=== PATIENT | male | born 1995 | race Caucasian/White ===

== ENCOUNTER 2019-09-23 20:58 | Inpatient (IN) | payer SELFPAY ==
--- NOTE | 2019-09-23 21:01 | W.ED.PSYCH ---
Documented by User: DAXA Richey 09/23/19 22:13 HPI - Psych General: Chief Complaint: Psychiatric Symptoms Stated Complaint: SI Time Seen by Provider: 09/23/19 21:01 Source: patient Mode of arrival: ambulatory Limitations: no limitations History of Present Illness: HPI Narrative: Patient is a 24-year-old male who presents to ED today along with his mother and girlfriend for complaints of a psychological breakdown . Patient tells me approximately 2 hours ago he had an episode of cognitive disassociation and apparently was self-loathing, self harming, and wanting to . Patient tells me that his life has gone to hell . He reports a previous suicide attempt 2 years ago by overdosing on sleeping pills. He is not homicidal or experiencing hallucinations. He denies drug or alcohol use. MD complaint: feels depressed and altered mental status Onset (ago): hour(s) History of same: Yes Relieving factors: none Associated symptoms: Reports depression and suicidal ideation; Deny auditory hallucinations, visual hallucinations or homicidal ideation Review of Systems Const: Denies: fever or chills Card: Denies: chest pain, palpitations, lightheadedness or syncope Resp: Denies: shortness of breath GI: Denies: abdominal pain, nausea, vomiting or diarrhea Skin/Breast: Denies: rash Neuro: Denies: headache Psych: Reports: depression, mood swings, irritability and suicidal ideation; Denies: anxiety, visual hallucinations, auditory hallucinations or homicidal ideation PFS ED PFSH: Statuses (acute, chronic, etc) shown below reflect problem list status as previously entered and may not be historically accurate Social History Smoking and tobacco status: current every day smoker Physical Exam Const: COMMON NORMALS: no apparent distress, average body habitus, oriented x3, no limitations, alert and well nourished GENERAL APPEARANCE: cooperative and well kempt Resp: COMMON NORMALS: normal respiratory effort and clear to auscultation bilaterally AUSCULTATION: clear to auscultation bilaterally Cardio: COMMON NORMALS: regular rate and regular rhythm RATE: regular rate RHYTHM: regular rhythm Neuro: COMMON NORMALS: oriented x3 SENSORIUM/ORIENTATION: Yes alert Psych: COMMON NORMALS: mental status grossly normal, thought process normal, cooperative, affect normal, speech normal and activity/motor behavior normal APPEARANCE: Yes well kempt ACTIVITY/MOTOR BEHAVIOR: Yes appropriate eye contact and No psychomotor agitation SPEECH: Yes normal speech THOUGHT PROCESS: normal thought process MEMORY/COGNITION: Yes cognition grossly intact INSIGHT: insight good JUDGEMENT: judgment good MDM - Psych MDM Narrative: Medical decision making narrative: Spoke to Dr. Turner who will place admit orders. Lab Data: Labs: Lab Results 09/23/19 09/23/19 09/23/19 Range/Units 21:20 21:20 21:58 WBC 8.9 (4.0-10.0) 10^3/ uL RBC 4.73 (4.1-5.3) 10^6/u L Hgb 13.5 (11.7-16.6) g/dL Hct 41.7 L (42.0-52.0) % MCV 88.2 (80-94) fL MCH 28.5 (28.0-34.0) pg MCHC 32.4 (30.0-36.0) g/dL RDW 11.9 L (12.1-15.1) % Plt Count 197 (130-400) 10^3/c mm MPV 12.0 H (7.4-10.4) fL Neut % (Auto) 61.0 % Lymph % (Auto) 30.3 % [place] % (Auto) 6.6 % Eos % (Auto) 1.7 % Baso % (Auto) 0.2 % Neut # (Auto) 5.4 (1.8-7.7) 10^3/u L Lymph # (Auto) 2.7 (0.8-4.8) 10^3/u L [place] # (Auto) 0.6 (0.2-0.9) 10^3/u L Eos # (Auto) 0.2 (0.0-0.8) 10^3/u L Baso # (Auto) 0.0 (0.0-0.1) 10^3/u L Nucleated RBC % (a uto) 0 % Nucleated RBCs # 0.0 /100WBC Sodium 139 (136-145) mmol/L Potassium 3.8 (3.5-5.1) mmol/L Chloride 102 (98-107) mmol/L Carbon Dioxide 27 (22-29) mmol/L Anion Gap 13.8 (5-19) BUN 11 (6-20) mg/dL Creatinine 0.8 (0.7-1.2) mg/dL GFR Calculation 117.8 (90-130) mL/min Glucose 98 (65-115) mg/dL Calcium 10.2 (8.5-10.5) mg/dL Total Bilirubin 0.3 (0.15-1.2) mg/dL AST 19 (0-40) U/L ALT 12 (0-41) U/L Alkaline Phosphata se 35 L (40-130) IU/L Total Protein 7.8 (6.6-8.7) g/dL Albumin 4.4 (3.5-5.2) g/dL Globulin 3.4 (1.3-4.6) g/dL TSH 1.12 (0.27-4.20) uIU/ mL Salicylates 1.5 L (3-10) mg/dL Urine Opiates Scre en Negative (Negative) ng/mL Acetaminophen < 5.0 L (10-30) ug/mL Ur Barbiturates Sc reen Negative (Negative) ng/mL Ur Phencyclidine S crn Negative (Negative) ng/mL Ur Amphetamines Sc reen Negative (Negative) ng/mL U Benzodiazepines Scrn Negative (Negative) ng/mL Urine Cocaine Scre en Negative (Negative) ng/mL U Marijuana (THC) Screen Negative (Negative) ng/mL Ethyl Alcohol < 10 (0-10) mg/dL Discharge Plan Discharge Patient Disposition: Xfer Psychiatric Hosp Clinical Impression: Suicidal ideation Condition: Stable Sign Out Sign Out Data: Patient Sign Out occurred on 09/23/19 at 23:01. Patient's care was discussed, and care was transferred from to Asha Turner. Coding Level of Care Code ED Culvert Installer for Chg Fwd Exam Problem Focused Documented by User: Asha uTrner 09/23/19 23:18 HPI - Psych General: Chief Complaint: Psychiatric Symptoms Stated Complaint: SI Time Seen by Provider: 09/23/19 21:01 [facility] ED PFSH: Statuses (acute, chronic, etc) shown below reflect problem list status as previously entered and may not be historically accurate Social History Smoking and tobacco status: current every day smoker MDM - Psych Lab Data: Labs: Lab Results 09/23/19 09/23/19 09/23/19 Range/Units 21:20 21:20 21:58 WBC 8.9 (4.0-10.0) 10^3/ uL RBC 4.73 (4.1-5.3) 10^6/u L Hgb 13.5 (11.7-16.6) g/dL Hct 41.7 L (42.0-52.0) % MCV 88.2 (80-94) fL MCH 28.5 (28.0-34.0) pg MCHC 32.4 (30.0-36.0) g/dL RDW 11.9 L (12.1-15.1) % Plt Count 197 (130-400) 10^3/c mm MPV 12.0 H (7.4-10.4) fL Neut % (Auto) 61.0 % Lymph % (Auto) 30.3 % [place] % (Auto) 6.6 % Eos % (Auto) 1.7 % Baso % (Auto) 0.2 % Neut # (Auto) 5.4 (1.8-7.7) 10^3/u L Lymph # (Auto) 2.7 (0.8-4.8) 10^3/u L [place] # (Auto) 0.6 (0.2-0.9) 10^3/u L Eos # (Auto) 0.2 (0.0-0.8) 10^3/u L Baso # (Auto) 0.0 (0.0-0.1) 10^3/u L Nucleated RBC % (a uto) 0 % Nucleated RBCs # 0.0 /100WBC Sodium 139 (136-145) mmol/L Potassium 3.8 (3.5-5.1) mmol/L Chloride 102 (98-107) mmol/L Carbon Dioxide 27 (22-29) mmol/L Anion Gap 13.8 (5-19) BUN 11 (6-20) mg/dL Creatinine 0.8 (0.7-1.2) mg/dL GFR Calculation 117.8 (90-130) mL/min Glucose 98 (65-115) mg/dL Calcium 10.2 (8.5-10.5) mg/dL Total Bilirubin 0.3 (0.15-1.2) mg/dL AST 19 (0-40) U/L ALT 12 (0-41) U/L Alkaline Phosphata se 35 L (40-130) IU/L Total Protein 7.8 (6.6-8.7) g/dL Albumin 4.4 (3.5-5.2) g/dL Globulin 3.4 (1.3-4.6) g/dL TSH 1.12 (0.27-4.20) uIU/ mL Salicylates 1.5 L (3-10) mg/dL Urine Opiates Scre en Negative (Negative) ng/mL Acetaminophen < 5.0 L (10-30) ug/mL Ur Barbiturates Sc reen Negative (Negative) ng/mL Ur Phencyclidine S crn Negative (Negative) ng/mL Ur Amphetamines Sc reen Negative (Negative) ng/mL U Benzodiazepines Scrn Negative (Negative) ng/mL Urine Cocaine Scre en Negative (Negative) ng/mL U Marijuana (THC) Screen Negative (Negative) ng/mL Ethyl Alcohol < 10 (0-10) mg/dL Discharge Plan Discharge Patient Disposition: Xfer Psychiatric Hosp Clinical Impression: Suicidal ideation Condition: Stable Sign Out Sign Out Data: Patient Sign Out occurred on 09/23/19 at 23:01. Patient's care was discussed, and care was transferred from to Asha Loera [facility]. Coding Level of Care Code ED Culvert Installer for Rosemary Torres Exam Problem Focused
[2019-09-23 21:03] VITALS: BP 126/77; PULSE 70; RESP 16; TEMP 36.9; O2SAT 98; BMI 20.9
[2019-09-23 21:32] LABS: Basophils % 0.2 %; Eosinophils # 0.2 10^3/uL (0.0-0.8); Eosinophils % 1.7 %; Hematocrit 41.7 % (42.0-52.0); Hemoglobin 13.5 g/dL (11.7-16.6); Lymphocytes # 2.7 10^3/uL (0.8-4.8); Lymphocytes % 30.3 %; Mean Corpuscular HGB Conc 32.4 g/dL (30.0-36.0); Mean Corpuscular Hemoglobin 28.5 pg (28.0-34.0); Mean Corpuscular Volume 88.2 fL (80-94); Monocytes # 0.6 10^3/uL (0.2-0.9); Monocytes % 6.6 %; Neutrophils # 5.4 10^3/uL (1.8-7.7); Nucleated Red Blood Cells % 0 %; Platelet Count 197 10^3/cmm (130-400); Red Blood Count 4.73 10^6/uL (4.1-5.3); Red Cell Distribution Width 11.9 % (12.1-15.1); White Blood Count 8.9 10^3/uL (4.0-10.0)
[2019-09-23 22:00] LABS: Acetaminophen < 5.0 ug/mL (10-30); Alanine Aminotransferase 12 U/L (0-41); Albumin Level 4.4 g/dL (3.5-5.2); Alcohol Level < 10 mg/dL (0-10); Alkaline Phosphatase 35 IU/L (40-130); Anion Gap 13.8 (5-19); Aspartate Amino Transferase 19 U/L (0-40); Blood Urea Nitrogen 11 mg/dL (6-20); Calcium 10.2 mg/dL (8.5-10.5); Carbon Dioxide 27 mmol/L (22-29); Chloride 102 mmol/L (98-107); Globulin 3.4 g/dL (1.3-4.6); Glomerular Filtration Rate 117.8 mL/min (90-130); Glucose 98 mg/dL (65-115); Potassium 3.8 mmol/L (3.5-5.1); Salicylate 1.5 mg/dL (3-10); Sodium 139 mmol/L (136-145); Thyroid Stimulating Hormone 1.12 uIU/mL (0.27-4.20); Total Bilirubin 0.3 mg/dL (0.15-1.2); Total Protein 7.8 g/dL (6.6-8.7)
[2019-09-23 22:42] LABS: Amphetamines Screen Urine Negative (Negative); Barbiturates Screen Urine Negative (Negative); Benzodiazepines Screen Urine Negative (Negative); Cocaine Screen Urine Negative (Negative); Opiate Screen Urine Negative (Negative); PCP Screen Urine Negative (Negative); THC Screen Urine Negative (Negative)
[2019-09-23 22:43] VITALS: BP 122/80; PULSE 76; RESP 12; O2SAT 98
[2019-09-23 23:14] VITALS: BP 132/84; PULSE 77; RESP 18; O2SAT 98
[2019-09-23 23:46] VITALS: BP 132/89; PULSE 69; RESP 18; TEMP 36.4; O2SAT 98
[2019-09-24 05:15] VITALS: BP 101/53; PULSE 76; RESP 16; TEMP 36.9; O2SAT 95
[2019-09-24] MEDS: nicotine 21 mg Patch 1 PATCH TRANSDERMA (08:36)
[2019-09-24 08:38] VITALS: PULSE 108; RESP 18; O2SAT 97
--- NOTE | 2019-09-24 10:52 | P.HP_ITS ---
Providers/Chief Complaint Admitting Physician: Hardeep Bradshaw MD Primary Care Provider: JOVANA Francis Chief Complaint: asking to go to npu HPI NPU History of Present Illness Zev Live is a 24 year old male who presents to the emergency room b ecause he was having some rough times. He reports that 4 week he had really been sleeping and things were not going well. He reports that he was last here in January 2018. He has been living in [place] and moving back and trying to really make the best of his life with his girlfriend. He reports that they were having some challenges in that led to what happened but, part of the issue is that he reports having somewhat explosive behaviors without really having triggers sometimes and was triggers other times. And he feels great guilt and remorse about how he responds to situations above and beyond what those situations with arousals and other people. He endorses having one suicide attempt in his life. He reports that he wants to manage this [id number] anger and irritability and is not currently on any medications and is open to a trial of something. We discussed the risks, benefits and alternatives of Lamictal for his mood dysregulation and BuSpar for his anxiety and he understood and agreed to proceed as is documented in his note. Psychiatric history: He had a few hospitalizations but limited medication trials. Substance abuse history: He endorses that he smokes about a pack of cigarettes a day, does not drink alcohol with any regularity, as marijuana occasionally but not daily, denies cocaine and methamphetamine or any other illicit drug use. He never has been to rehabilitation or had a DUI. Family history: He endorses mental health issues on both sides of his family, he has addiction issues on his dad's side of family, and he denies any suicide attempts or completions in his family. 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 A walk and talk to [facility] [place] milestones on time. He reports he did have speech therapy and was diagnosed with ADHD but denies any emotional support, learning support or special education classes. Psychosocial history: 's mother father were together when he was born. He has a younger brother that is also a product of that union. He is unaware of any half siblings. He reports his childhood was okay. They were really poor endorses some neglect but denies physical or sexual abuse. He did graduate from high school but denies any additional training. Endorses being heterosexual with his longest relationship being one year. Never been , never had children, never been in and endorses the [employer] as his church. He reports that as long as employment was 6 years that [facility] [place] staff[place]. He reports he currently lives in a house with his mom and his girlfriend. Legal history: He denies ever being in senior care. Per his last [facility] [place] [place] evaluation: History of Present Illness Date of Service: Feb 10, 2018 Chief Complaint: I had tooth pain for about the last week and a half. HPI: HPI: The patient is a 22-year-old male admitted for suicidal ideation on a 96 hour hold. Affidavit reviewed on the chart stated that the patient had overdosed on medication as a suicide attempt. The patient reported that he intentionally over ingested a handful of 6 Benadryl tablets yesterday as a suicide attempt. He was monitored in the ER overnight with no acute medical complications. The patient reports that he has been under a lot of stress recently. Reports that he was upset about his tooth pain and unable to afford dental care and tired of living with the pain. Also reports recently moving back [place] with has been stressful. Reports he and his mother have struggled with finding adequate housing, had transportation difficulties, and he has started working a very stressful job. He reports after he took a handful of meds, he wanted to take more but woke mother for help instead. Reports he has had mild depression for years but normally is able to treat it with positive coping skills including meditation or exercise but feels unable to utilize his coping skills due to the severity of his depression recently and knows he needs more help. Psychiatric review of systems: Patient reports his mood is bleak /increasingly depressed for at least the past 2 weeks, anhedonia, endorses chronic sleep problems/ insomnia which is no longer responsive to diphenhydramine, fatigue, helplessness, suicidal ideations/ I just wanted to sleep and just not get back up. He does report chronic insomnia and at times will go days with 4 hours sleep, and feels somewhat hyper but denies any other manic symptoms including increased irritability/grandiosity/risky behaviors during those times. He seems to be reporting chronic issues with concentration and staying on task which are not episodic. Denies any recent hallucinations or paranoia but does report a history of having auditory hallucinations of murmurs when unable to sleep for up to 5 days due to his chronic primary insomnia which is present with or without mood symptoms. Past psychiatric history: Denies prior psych hx/diagnosis/suicide attempts/psychiatric admissions/psychotropic medications. Past medical history: History of left facial fracture in skating accident and arrhythmia not on meds. History left index finger repair. Denies any other history of surgeries, no seizures. Family history: Depression suspected. Social history: Single, no children, lives with mother in home infested with rodents/ car is broken down, employed at [employer] which is stressful, denies alcohol or drug use. Tobacco- 1PPD. Meds NPU Home Medications Medication Instructions Recorded Confirmed Type No Known Home Medications 09/23/19 09/23/19 History Allergies Allergy/AdvReac Type Severity Reaction Status Date / Time No Known Allergies Allergy Verified 09/23/19 21:02 PFSH NPU PFSH: Statuses (acute, chronic, etc) shown below reflect problem list status as previously entered and may not be historically accurate Social History Smoking and tobacco status: current every day smoker Mental Status Exam MSE Comments: This is a slender white male with adequate progress, grooming and eye contact. No abnormal movements except for mild psychomotor retardation. Cooperative with exam in no acute distress. Speech was decreased rate and volume. Mood described as in some ways better in some ways worse than yesterday, affect slightly irritable. Thought process organized. Thought content: Patient denied any suicidal or homicidal ideations, there were no delusions reported noted, he denied any auditory or visual hallucinations. Attention and concentration were intact and memory appeared reliable but none were formally tested. He is alert and oriented ?3. Insight and judgment appeared fair. Vitals/I&O/Wt Last Vital Signs Temp 98.4 F 09/24/19 05:15 Pulse 108 H 09/24/19 08:38 Resp 18 09/24/19 08:38 BP 101/53 09/24/19 05:15 Pulse Ox 97 09/24/19 08:38 Weight last 48 hrs Weight 68.039 kg Data NPU : 09/23/19 21:20 09/23/19 21:20 A&P Assessment and plan (1) Cluster A personality disorder: This is a 24-year-old white male with a previous history of depression, anxiety relational problems and previous hospitalization who presents endorsing aggressive thoughts in the emergency room and expressing an openness to a trial of medication. 1. Continue current medications. Except: 2. Initiate Lamictal 25 mg by mouth every morning for 1 week then increase by 25 mg weekly for 3 weeks to a total of 100 mg daily and then reevaluate with outpatient doctor to explore whether a second titration to 100 mg for a 200 mg divided dosing is indicated. 3. Start BuSpar 15 mg by mouth twice a day. 4. Encourage individual, group and milieu therapy. 5. Continue every 15 minute checks for safety. 6. Encourage plan for outpatient therapy. Status: Acute Code(s): F60.89 - Other specific personality disorders (2) Cluster B personality disorder: Status: Acute Code(s): F60.89 - Other specific personality disorders (3) Anxiety disorder: Status: Acute Code(s): F41.9 - Anxiety disorder, unspecified (4) Depression: Status: Acute Code(s): F32.9 - Major depressive disorder, single episode, unspecified Involuntary Hold Information 96 Hour Hold: 96 Hour Involuntary Admission: No Attestations NPU Medical Necessity Statement*: Inpatient hospitalization is medically necessary and the clinically appropriate intervention at this time. Patient will be in the hospital for over 2 midnights. We will initiate medications, monitor and titrated to effect. Likely length of stay 3-5 days. Coding Level of Care Code Acute Manager [employer] for Rosemary Torres Diagnoses Cluster A personality disorder F60.89 Cluster B personality disorder F60.89 Anxiety disorder F41.9 Depression F32.9
[2019-09-24 14:00] VITALS: BP 127/85; PULSE 85; RESP 18; TEMP 36.7; O2SAT 99
[2019-09-24] MEDS: lamoTRIgine 25 mg Tablet PO (16:02)
[2019-09-24 20:38] VITALS: BP 130/80; PULSE 120; RESP 16; TEMP 36.6; O2SAT 98
[2019-09-24] MEDS: trazodone 50 mg Tablet PO (22:17)
[2019-09-25 06:00] VITALS: BP 110/60; PULSE 72; RESP 18; TEMP 36.5; O2SAT 97
[2019-09-25] MEDS: lamoTRIgine 25 mg Tablet PO (08:19)
[2019-09-25 10:06] VITALS: PULSE 104; RESP 16; O2SAT 98
[2019-09-25] MEDS: nicotine 21 mg Patch 1 PATCH TRANSDERMA (10:24)
[2019-09-25 14:00] VITALS: BP 120/76; PULSE 108
--- NOTE | 2019-09-25 16:31 | P.PN_ITS ---
Subjective NPU Subjective: Interval history: Zev presented today reporting that he is doing okay. He reports that the Lamictal seems to be fine but that the BuSpar seems to have a too strong effect over the first hour and then it seems fine. We discussed the risks benefits and alternatives of decreasing the dose back to 10 mg by mouth twice a day and he understood and agreed to proceed as is documented in his note. He said his family visited [facility] and forgiving and just wanting him to get help so that he can come back home which was nice for him to experience. He reports he still feels guilt about his behavior. Mental Status Exam MSE Comments: This is a slender white male with adequate progress, grooming and eye contact. No abnormal movements except for mild psychomotor retardation. Cooperative with exam in no acute distress. Speech was decreased rate and volume. Mood described as a little better, affect congruent. Thought process organized. Thought content: Patient denied any suicidal or homicidal ideations, there were no delusions reported noted, he denied any auditory or visual hallucinations. Attention and concentration were intact and memory appeared reliable but none were formally tested. He is alert and oriented ?3. Insight and judgment appeared fair. Vitals/I&O/Wt Last Vital Signs Temp 97.7 F 09/25/19 06:00 Pulse 108 H 09/25/19 14:00 Resp 16 09/25/19 10:06 BP 120/76 09/25/19 14:00 Pulse Ox 98 09/25/19 10:06 Weight last 48 hrs Weight 68.039 kg Data NPU : 09/23/19 21:20 09/23/19 21:20 A&P Additional A&P Information This is a 24-year-old white male with a previous history of depression, anxiety relational problems and previous hospitalization who presents endorsing aggressive thoughts in the emergency room and expressing an openness to a trial of medication. 1. Continue current medications. Except: 2. Decrease BuSpar to 15 mg by mouth twice a day. 3. Encourage individual, group and milieu therapy. 4. Continue every 15 minute checks for safety. 5. Encourage plan for outpatient therapy. Involuntary Hold Information 96 Hour Hold: 96 Hour Involuntary Admission: No Attestations NPU 2 Medical Necessity Statement*: Inpatient hospitalization is medically necessary and the clinically appropriate intervention at this time. We will initiate medi cations, monitor and titrated to effect. Likely length of stay 2-4 days. Coding Level of Care Code Acute System Admin for Rosemary Torres
[2019-09-25] MEDS: BuSPIRONE 10 mg Tablet PO (17:07)
[2019-09-25 20:38] VITALS: BP 126/90; PULSE 111; RESP 18; TEMP 36.8; O2SAT 97
[2019-09-26 05:33] VITALS: BP 117/70; PULSE 88; RESP 18; TEMP 36.6; O2SAT 97
[2019-09-26 06:00] VITALS: BMI 22.1
[2019-09-26] MEDS: BuSPIRONE 10 mg Tablet PO ×2 (08:21→16:59)
[2019-09-26] MEDS: lamoTRIgine 25 mg Tablet PO (08:22)
[2019-09-26 13:23] VITALS: BP 138/79
[2019-09-26 14:03] VITALS: BP 128/75; PULSE 100; RESP 19; TEMP 36.9; O2SAT 98
--- NOTE | 2019-09-26 16:04 | P.PN_ITS ---
Subjective NPU Subjective: Interval history: Zev presents today reporting that the decrease in the BuSpar yesterday did the trick. He reports he got the benefit of the angiolytic properties without the feeling that he had for about an hour when he took the 15 mg dose. He denies any issues with the Lamictal and we had a discussion about the planned titration that would take place after discharge. We also discussed his desire for discharge and the fact that we could work with the social workers in the morning to make sure that he has access to his medication and that he has the highest benefit from this hospitalization. He reports that he is eating and sleeping better and feeling improved overall. Mental Status Exam MSE Comments: This is a slender white male with adequate progress, grooming and eye contact. No abnormal movements . Cooperative with exam, in no acute distress. Speech was normal rate and volume. Mood described as a much better, affect congruent. Thought process organized. Thought content: Patient denied any suicidal or homicidal ideations, there were no delusions reported noted, he denied any auditory or visual hallucinations. Attention and concentration were intact and memory appeared reliable but none were formally tested. He is alert and oriented ?3. Insight and judgment appeared fair. Vitals/I&O/Wt Last Vital Signs Temp 98.4 F 09/26/19 14:03 Pulse 100 09/26/19 14:03 Resp 19 H 09/26/19 14:03 BP 128/75 09/26/19 14:03 Pulse Ox 98 09/26/19 14:03 Weight last 48 hrs Weight 72.178 kg Data NPU : 09/23/19 21:20 09/23/19 21:20 A&P Additional A&P Information This is a 24-year-old white male with a previous history of depression, anxiety relational problems and previous hospitalization who presents endorsing aggressive thoughts in the emergency room and expressing an openness to a trial of medication. Among the other diagnoses there is some possibility for autism spectrum disorder as well. 1. Continue current medications. Except: 2. Continue BuSpar at the decreased dose of 10 mg by mouth twice a day. 3. Encourage individual, group and milieu therapy. 4. Continue every 15 minute checks for safety. 5. Encourage plan for outpatient therapy. Involuntary Hold Information 96 Hour Hold: 96 Hour Involuntary Admission: No Attestations NPU Medical Necessity Statement*: Inpatient hospitalization is medically necessary and the clinically appropriate intervention at this time. We will monitor medications and titrated to effect if indicated. Likely length of stay 1-2 days. Tentative discharge plan for tomorrow morning. Coding Level of Care Code Acute Management Trainee Marketing for Rosemary Torres
[2019-09-26] MEDS: acetaminophen 325 mg Tablet 650 MG PO (18:13)
[2019-09-26] MEDS: trazodone 50 mg Tablet PO (20:57)
[2019-09-26 21:40] VITALS: BP 122/73; PULSE 88; RESP 19; TEMP 36.4; O2SAT 97
--- NOTE | 2019-09-26 21:57 | PC.NURSE ---
20:57 Patient given PRN Trazodone for sleep
[2019-09-27 06:00] VITALS: BP 109/64; PULSE 76; RESP 18; TEMP 36.4; O2SAT 98
[2019-09-27] MEDS: BuSPIRONE 10 mg Tablet PO (09:29)
[2019-09-27] MEDS: lamoTRIgine 25 mg Tablet PO (09:29)
--- NOTE | 2019-09-27 12:00 | P.DS_ITS ---
Diagnoses at Discharge Discharge Diagnosis (1) Cluster A personality disorder: Status: Acute (2) Cluster B personality disorder: Status: Acute (3) Anxiety disorder: Status: Acute (4) Depression: Status: Acute Reason for Visit Reason for Visit: Reason For Visit: asking to go to npu Brief History: HPI NPU History of Present Illness Zev iLve is a 24 year old male who presents to the emergency room because he was having some rough times. He reports that 4 week he had really been sleeping and things were not going well. He reports that he was last here in January 2018. He has been living in [place] and moving back and trying to really make the best of his life with his girlfriend. He reports that they were having some challenges in that led to what happened but, part of the issue is that he reports having somewhat explosive behaviors without really having triggers sometimes and was triggers other times. And he feels great guilt and remorse about how he responds to situations above and beyond what those situations with arousals and other people. He endorses having one suicide attempt in his life. He reports that he wants to manage this [id number] anger and irritability and is not currently on any medications and is open to a trial of something. We discussed the risks, benefits and alternatives of Lamictal for his mood dysregulation and BuSpar for his anxiety and he understood and agreed to proceed as is documented in his note. Psychiatric history: He had a few hospitalizations but limited medication trials. Substance abuse history: He endorses that he smokes about a pack of cigarettes a day, does not drink alcohol with any regularity, as marijuana occasionally but not daily, denies cocaine and methamphetamine or any other illicit drug use. He never has been to rehabilitation or had a DUI. Family history: He endorses mental health issues on both sides of his family, he has addiction issues on his dad's side of family, and he denies any suicide attempts or completions in his family. 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 A walk and talk to Ms. Bobo milestones on time. He reports he did have speech therapy and was diagnosed with ADHD but denies any emotional support, learning support or special education classes. Psychosocial history: 's mother father were together when he was born. He has a younger brother that is also a product of that union. He is unaware of any half siblings. He reports his childhood was okay. They were really poor endorses some neglect but denies physical or sexual abuse. He did graduate from high school but denies any additional training. Endorses being heterosexual with his longest relationship being one year. Never been , never had children, never been in and endorses the immunology as his lutheran. He reports that as long as employment was 6 years that [employer] staff[employer]. He reports he currently lives in a house with his mom and his girlfriend. Legal history: He denies ever being in senior living. Per his last [facility] evaluation: History of Present Illness Date of Service: Feb 10, 2018 Chief Complaint: I had tooth pain for about the last week and a half. HPI: HPI: The patient is a 22-year-old male admitted for suicidal ideation on a 96 hour hold. Affidavit reviewed on the chart stated that the patient had overdosed on medication as a suicide attempt. The patient reported that he intentionally over ingested a handful of 6 Benadryl tablets yesterday as a suicide attempt. He was monitored in the ER overnight with no acute medical complications. The patient reports that he has been under a lot of stress recently. Reports that he was upset about his tooth pain and unable to afford dental care and tired of living with the pain. Also reports recently moving back to [place] from [place] with has been stressful. Reports he and his mother have struggled with finding adequate housing, had transportation difficulties, and he has started working a very stressful job. He reports after he took a handful of meds, he wanted to take more but woke mother for help instead. Reports he has had mild depression for years but normally is able to treat it with positive coping skills including meditation or exercise but feels unable to utilize his coping skills due to the severity of his depression recently and knows he needs more help. Psychiatric review of systems: Patient reports his mood is bleak /increasingly depressed for at least the past 2 weeks, anhedonia, endorses chronic sleep problems/ insomnia which is no longer responsive to diphenhydramine, fatigue, helplessness, suicidal ideations/ I just wanted to sleep and just not get back up. He does report chronic insomnia and at times will go days with 4 hours sleep, and feels somewhat hyper but denies any other manic symptoms including increased irritability/grandiosity/risky behaviors during those times. He seems to be reporting chronic issues with concentration and staying on task which are not episodic. Denies any recent hallucinations or paranoia but does report a history of having auditory hallucinations of murmurs when unable to sleep for up to 5 days due to his chronic primary insomnia which is present with or without mood symptoms. Past psychiatric history: Denies prior psych hx/diagnosis/suicide attempts/psychiatric admissions/psychotropic medications. Past medical history: History of left facial fracture in skating accident and arrhythmia not on meds. History left index finger repair. Denies any other history of surgeries, no seizures. Family history: Depression suspected. Social history: Single, no children, lives with mother in home infested with rodents/ car is broken down, employed at [employer] which is stressful, denies alcohol or drug use. Tobacco- 1PPD. Hospital Course Hospital Course Zev presented to the emergency room anger, interpersonal conflicts and thoughts to kill himself. He was admitted to the neuro psych unit and quickly acclimated to the individual, group and milieu therapies provided. He was started on BuSpar 15 mg by mouth twice a day which was decreased to 10 mg by mouth twice a day as well as Lamictal 25 mg daily. Lamictal will have a titration to 100 mg after discharge to avoid the risk of Scott-Jose syndrome which we discussed the risks, benefits and alternatives related to the medication additions and he understood and agreed to proceed as is documented in this note. He responded well to the medication. During hospitalization he had routine laboratory studies which were within normal limits except for a few outliers. Additionally he had a general medical evaluation which was also within normal limits and revealed no new acute processes. Discharge Summary At the time of discharge he denied any lethality, depression is improving and his anxiety was better controlled. He endorsed a plan to avoid any drugs of abuse and follow-up with outpatient treatment to which he was referred. He achieves a maximum benefit from inpatient hospitalization so he was discharged. Involuntary Hold Information 96 Hour Hold: 96 Hour Involuntary Admission: No Mental Status Exam MSE Comments: This is a slender white male with adequate progress, grooming and eye contact. No abnormal movements . Cooperative with exam, in no acute distress. Speech was normal rate and volume. Mood described as pretty good, affect congruent. Thought process organized. Thought content: Patient denied any suicidal or homicidal ideations, there were no delusions reported noted, he denied any auditory or visual hallucinations. Attention and concentration were intact and memory appeared reliable but none were formally tested. He is alert and oriented ?3. Insight and judgment appeared fair. Discharge Data Vitals: Last Vital Signs Temp 97.5 F L 09/27/19 06:00 Pulse 76 09/27/19 06:00 Resp 18 09/27/19 06:00 BP 109/64 09/27/19 06:00 Pulse Ox 98 09/27/19 06:00 Discharge Plan Discharge Patient Disposition: Home, Self-Care Condition: Stable Prescriptions: New lamotrigine 25 mg Tablet 25 mg PO DAILY 17 Days Qty: 38 RF: 0 buspirone 10 mg Tablet 10 mg PO BID 30 Days Qty: 60 RF: 1 Lamictal 100 mg tablet 100 mg PO DAILY Qty: 30 RF: 1 Discharge Orders: Discharge Order (Routine); Ordered 09/27/19 Ordered By: Hardeep Bradshaw Referrals: [facility] [Other] Wero Lane MD [Physician] - 10/07/19 12:15 pm (Psychiatric evaluation) Discharge Diet: Regular Discharge Activity: Resume usual activity Patient Instructions: Generalized Anxiety Disorder, Depression, Buspirone (By mouth), Lamotrigine (By mouth) Discharge Date/Time: 09/27/19 13:11 Discharge Attestations NPU Time Spent in Discharge Care*: less than 30 min Specific Discharge Activities: Specific discharge activities: educating patient, discussing with window caser/social workers/dc planners, documenting/other paperwork and evaluating patient/reviewing data Coding Level of Care Code Acute Site Identification Specialist for [facility] Fwd Diagnoses Cluster A personality disorder F60.89 Cluster B personality disorder F60.89 Anxiety disorder F41.9 Depression F32.9
[2019-09-27 12:45] VITALS: BP 109/64; PULSE 76; RESP 18; TEMP 36.4; O2SAT 98
[2019-09-27 12:46] VITALS: BP 109/64; PULSE 76; RESP 18; TEMP 36.4; O2SAT 98
== END 2019-09-27 13:11 | disposition home or self-care (01) | DRG 883 ==
LOC: ER 23:01 → NP 23:11
PROVIDERS: Physician Assistant; Admitting Provider Psychiatry & Neurology Psychiatry; Emergency Provider Emergency Medicine; Visit Provider Psychiatry & Neurology Psychiatry
DX: F60.89 Other specific personality disorders (principal); R45.851 Suicidal ideations; F41.8 Other specified anxiety disorders; F17.210 Nicotine dependence, cigarettes, uncomplicated
CPT/HCPCS: 12345; 80053; 80307; 84443; 85025; 99284

== ENCOUNTER 2019-10-03 15:26 | Inpatient (IN) | payer SELFPAY ==
--- NOTE | 2019-10-03 15:30 | ED_ITS ---
Entered by Ernestine Dillon, acting as scribe for Marjorie Lopez MD, [facility] Oct 03, 2019 15:26 HPI - Psych General: Chief Complaint: Psychiatric Symptoms Stated Complaint: mhe/SI Time Seen by Provider: 10/03/19 15:30 Source: patient and RN notes reviewed Mode of arrival: ambulatory Limitations: no limitations History of Present Illness: HPI Narrative: 24 yo male presents to ED with suicidal ideation. He said he was having trouble forming words and that depressed him. The patient states it seems as if his brain is having some issues and he doesn't know how to deal with it on his own. Today is worse than it has been for a long time. He is feeling: remorse, sadness, pain, anger at himself. He has tried suicide in the past. MD complaint: suicidal ideation and feels depressed Onset (ago): hour(s) (today) Duration: constant and getting worse History of same: Yes Relieving factors: medication Exacerbating factors: none Context: significant life stressor Associated psychiatric symptoms: depression and suicidal ideation Associated symptoms: Reports depression and suicidal ideation Treatments prior to arrival: none If self harm: admits thoughts of self harm Review of Systems General: Reports: 10 or more systems reviewed and unremarkable except in HPI and below Const: Denies: fever, chills or body aches Eyes: Reports: blind spots; Denies: change in vision or blurry vision ENMT: Denies: throat pain, enlarged tonsils, painful swallowing, hoarseness, mouth pain or swelling of lips/tongue Card: Reports: chest pain; Denies: palpitations, irregular heart rhythm, edema or swelling of feet/ankles Resp: Denies: shortness of breath, productive cough or non-productive cough GI: Denies: abdominal pain, nausea or vomiting : Denies: flank pain, painful urination, urinary frequency, urinary urgency or urinary hesitancy Musc: Denies: neck pain, back pain or extremity swelling Skin/Breast: Denies: rash, itching or redness Neuro: Denies: headache, numbness in extremities or weakness in extremities Psych: Reports: depression and suicidal ideation Endo: Denies: excessive urination, excessive thirst or tired all the time [facility] ED PFSH: Medical History (Updated 10/03/19 @ 18:24 by Marjorie Lopez MD, [facility]) Cluster B personality disorder Social History Smoking and tobacco status: current every day smoker Physical Exam Const: COMMON NORMALS: no apparent distress, average body habitus, oriented x3, no limitations, healthy appearing, alert and well nourished HENMT: COMMON NORMALS: normocephalic, head/scalp atraumatic and moist oral mucous membranes HEAD & SCALP: normocephalic and atraumatic Eye: COMMON NORMALS: PERRL, EOMs intact bilaterally, conjunctivae normal and no scleral icterus CONJUNCTIVA: Yes conjunctivae normal PUPIL: Yes PERRL Neck/C-Spine: COMMON NORMALS: full ROM, supple, no meningeal signs, no JVD and no carotid bruits Chest: COMMONS NORMALS: inspection of chest normal and palpation of chest normal Resp: COMMON NORMALS: normal respiratory effort, no retractions, no use of accessory muscles, clear to auscultation bilaterally and percussion normal AUSCULTATION: clear to auscultation bilaterally PERCUSSION: percussion normal Cardio: COMMON NORMALS: no JVD, regular rate, regular rhythm, S1 normal heart sound, S2 normal heart sound, no gallops, no clicks, no murmurs, no rub and peripheral pulses 2+ throughout RATE: regular rate RHYTHM: regular rhythm HEART SOUNDS: S1 normal and S2 normal PERIPHERAL PULSES: pulses 2+ throughout GI: COMMON NORMALS: normal to inspection, nondistended, normoactive bowel sounds, soft to palpation, non-tender, no hepatosplenomegaly, no masses and no bruits PALPATION: Yes soft and Yes no hepatosplenomegaly : COMMON NORMALS: Yes no CVA tenderness BLADDER/KIDNEY EXAM: Yes no CVA tenderness Back/Pelvis: COMMON NORMALS: no CVA tenderness Extremity: COMMON NORMALS: normal to inspection, full ROM, normal capillary refill, no calf tenderness and no pedal edema Neuro: COMMON NORMALS: oriented x3 SENSORIUM/ORIENTATION: Yes alert MENINGEAL SIGNS: Yes no meningeal signs Skin: COMMON NORMALS: no rashes or lesions noted, no wounds, skin turgor normal, no jaundice, no petechiae and no mottling GENERAL SKIN EXAM: no rashes or lesions noted and turgor normal MDM - Psych MDM Narrative: Medical decision making narrative: 24-year-old gentleman who presents to the emergency department with suicidal ideations. He does not have a plan, however he is concerned that if his depression continues to worsen he may get to the point where he attempts suicide. He is medically cleared and admitted to the psychiatric unit for further evaluation and management. Medical Records: Attestation: I reviewed the patient's medical records. Lab Data: Attestation: I reviewed the patient's lab results. Labs: Lab Results 10/03/19 10/03/19 10/03/19 Range/Units 15:45 15:45 16:16 WBC 13.1 H (4.0-10.0) 10^3/ uL RBC 4.84 (4.1-5.3) 10^6/u L Hgb 13.8 (11.7-16.6) g/dL Hct 43.5 (42.0-52.0) % MCV 89.9 (80-94) fL MCH 28.5 (28.0-34.0) pg MCHC 31.7 (30.0-36.0) g/dL RDW 12.0 L (12.1-15.1) % Plt Count 261 (130-400) 10^3/c mm MPV 11.3 H (7.4-10.4) fL Neut % (Auto) 75.9 % Lymph % (Auto) 16.5 % [place] % (Auto) 5.5 % Eos % (Auto) 1.5 % Baso % (Auto) 0.3 % Neut # (Auto) 10.0 H (1.8-7.7) 10^3/u L Lymph # (Auto) 2.2 (0.8-4.8) 10^3/u L [place] # (Auto) 0.7 (0.2-0.9) 10^3/u L Eos # (Auto) 0.2 (0.0-0.8) 10^3/u L Baso # (Auto) 0.0 (0.0-0.1) 10^3/u L Nucleated RBC % (a uto) 0 % Nucleated RBCs # 0.0 /100WBC Sodium (136-145) mmol/L Potassium (3.5-5.1) mmol/L Chloride (98-107) mmol/L Carbon Dioxide (22-29) mmol/L Anion Gap (5-19) BUN (6-20) mg/dL Creatinine (0.7-1.2) mg/dL GFR Calculation (90-130) mL/min Glucose (65-115) mg/dL Calcium (8.5-10.5) mg/dL Total Bilirubin (0.15-1.2) mg/dL AST (0-40) U/L ALT (0-41) U/L Alkaline Phosphata se (40-130) IU/L Total Protein (6.6-8.7) g/dL Albumin (3.5-5.2) g/dL Globulin (1.3-4.6) g/dL TSH (0.27-4.20) uIU/ mL Urine Color Yellow (Yellow) Urine Appearance Clear (CLEAR) Urine pH 8 H (5-7) Ur Specific Gravit y 1.015 (1.005-1.030) Urine Protein Neg (Negative) Urine Glucose (UA) Norm (Normal) Urine Ketones Negative (Negative) Urine Occult Blood Neg (Negative) Urine Nitrate Negative (Negative) Urine Bilirubin Neg (NEGATIVE) Prot Sulfosalicyli c Acd Negative Urine Urobilinogen Norm (Negative) mg/dL Ur Leukocyte Ashly ase Negative (Negative) Salicylates (3-10) mg/dL Urine Opiates Scre en Negative (Negative) ng/mL Acetaminophen (10-30) ug/mL Ur Barbiturates Sc reen Negative (Negative) ng/mL Ur Phencyclidine S crn Negative (Negative) ng/mL Ur Amphetamines Sc reen Negative (Negative) ng/mL U Benzodiazepines Scrn Negative (Negative) ng/mL Urine Cocaine Scre en Negative (Negative) ng/mL U Marijuana (THC) Screen Negative (Negative) ng/mL Ethyl Alcohol (0-10) mg/dL 10/03/19 Range/Units 16:16 WBC (4.0-10.0) 10^3/ uL RBC (4.1-5.3) 10^6/u L Hgb (11.7-16.6) g/dL Hct (42.0-52.0) % MCV (80-94) fL MCH (28.0-34.0) pg MCHC (30.0-36.0) g/dL RDW (12.1-15.1) % Plt Count (130-400) 10^3/c mm MPV (7.4-10.4) fL Neut % (Auto) % Lymph % (Auto) % [place] % (Auto) % Eos % (Auto) % Baso % (Auto) % Neut # (Auto) (1.8-7.7) 10^3/u L Lymph # (Auto) (0.8-4.8) 10^3/u L [place] # (Auto) (0.2-0.9) 10^3/u L Eos # (Auto) (0.0-0.8) 10^3/u L Baso # (Auto) (0.0-0.1) 10^3/u L Nucleated RBC % (a uto) % Nucleated RBCs # /100WBC Sodium 140 (136-145) mmol/L Potassium 4.5 (3.5-5.1) mmol/L Chloride 102 (98-107) mmol/L Carbon Dioxide 26 (22-29) mmol/L Anion Gap 16.5 (5-19) BUN 6 (6-20) mg/dL Creatinine 1.0 (0.7-1.2) mg/dL GFR Calculation 91.0 (90-130) mL/min Glucose 111 (65-115) mg/dL Calcium 10.3 (8.5-10.5) mg/dL Total Bilirubin 0.3 (0.15-1.2) mg/dL AST 17 (0-40) U/L ALT 13 (0-41) U/L Alkaline Phosphata se 41 (40-130) IU/L Total Protein 8.2 (6.6-8.7) g/dL Albumin 4.6 (3.5-5.2) g/dL Globulin 3.6 (1.3-4.6) g/dL TSH 0.77 (0.27-4.20) uIU/ mL Urine Color (Yellow) Urine Appearance (CLEAR) Urine pH (5-7) Ur Specific Gravit y (1.005-1.030) Urine Protein (Negative) Urine Glucose (UA) (Normal) Urine Ketones (Negative) Urine Occult Blood (Negative) Urine Nitrate (Negative) Urine Bilirubin (NEGATIVE) Prot Sulfosalicyli c Acd Urine Urobilinogen (Negative) mg/dL Ur Leukocyte Ashly ase (Negative) Salicylates < 0.3 L (3-10) mg/dL Urine Opiates Scre en (Negative) ng/mL Acetaminophen < 5.0 L (10-30) ug/mL Ur Barbiturates Sc reen (Negative) ng/mL Ur Phencyclidine S crn (Negative) ng/mL Ur Amphetamines Sc reen (Negative) ng/mL U Benzodiazepines Scrn (Negative) ng/mL Urine Cocaine Scre en (Negative) ng/mL U Marijuana (THC) Screen (Negative) ng/mL Ethyl Alcohol < 10 (0-10) mg/dL Discharge Plan Discharge Patient Disposition: Admitted As Inpatient Admit Provider: Dung Salazar Clinical Impression: Suicidal ideation Condition: Stable Coding Level of Care Code ED Scanning Coordinator for Chg Fwd Exam Comprehensive The documentation recorded by the Wilma brito Valerie R, accurately reflects the service I personally performed and the decisions made by Jessica guerrero Adegoke I, MD, [facility] Oct 03, 2019 15:26
[2019-10-03 15:31] VITALS: BP 123/86; PULSE 87; RESP 16; TEMP 36.6; O2SAT 100; BMI 21.1
--- NOTE | 2019-10-03 15:41 | PC.NURSE ---
supervisor mixing notified of pt suicidal ideation. No sitters available, network operations technician Otilia Tam sitting with pt.
[2019-10-03 16:21] LABS: Basophils % 0.3 %; Eosinophils # 0.2 10^3/uL (0.0-0.8); Eosinophils % 1.5 %; Hematocrit 43.5 % (42.0-52.0); Hemoglobin 13.8 g/dL (11.7-16.6); Lymphocytes # 2.2 10^3/uL (0.8-4.8); Lymphocytes % 16.5 %; Mean Corpuscular HGB Conc 31.7 g/dL (30.0-36.0); Mean Corpuscular Hemoglobin 28.5 pg (28.0-34.0); Mean Corpuscular Volume 89.9 fL (80-94); Mean Platelet Volume 11.3 fL (7.4-10.4); Monocytes # 0.7 10^3/uL (0.2-0.9); Monocytes % 5.5 %; Neutrophils % 75.9 %; Nucleated Red Blood Cells % 0 %; Platelet Count 261 10^3/cmm (130-400); Red Blood Count 4.84 10^6/uL (4.1-5.3); White Blood Count 13.1 10^3/uL (4.0-10.0)
[2019-10-03 16:21] LABS: Add Urine Microscopic? NO
[2019-10-03 16:29] LABS: Bilirubin Urine Neg (NEGATIVE); Blood Urine Neg (Negative); Glucose Urine UA Norm (Normal); Ketones Urine Negative (Negative); Leukocyte Esterase Urine Negative (Negative); Nitrate Urine Negative (Negative); Protein Urine Neg (Negative); Specific Gravity, Urine 1.015 (1.005-1.030); Sulfosalicylic Acid Urine Negative; Urine Appearance Clear (CLEAR); Urine Color Yellow (Yellow); Urobilinogen Urine Norm (Negative); pH Urine 8 (5-7)
[2019-10-03] MEDS: nicotine 21 mg Patch 1 PATCH TRANSDERMA (16:34)
[2019-10-03 16:42] LABS: Amphetamines Screen Urine Negative (Negative); Barbiturates Screen Urine Negative (Negative); Benzodiazepines Screen Urine Negative (Negative); Cocaine Screen Urine Negative (Negative); Opiate Screen Urine Negative (Negative); PCP Screen Urine Negative (Negative); THC Screen Urine Negative (Negative)
[2019-10-03 16:47] LABS: Alanine Aminotransferase 13 U/L (0-41); Albumin Level 4.6 g/dL (3.5-5.2); Alkaline Phosphatase 41 IU/L (40-130); Anion Gap 16.5 (5-19); Aspartate Amino Transferase 17 U/L (0-40); Blood Urea Nitrogen 6 mg/dL (6-20); Calcium 10.3 mg/dL (8.5-10.5); Carbon Dioxide 26 mmol/L (22-29); Chloride 102 mmol/L (98-107); Globulin 3.6 g/dL (1.3-4.6); Glucose 111 mg/dL (65-115); Potassium 4.5 mmol/L (3.5-5.1); Sodium 140 mmol/L (136-145); Thyroid Stimulating Hormone 0.77 uIU/mL (0.27-4.20); Total Bilirubin 0.3 mg/dL (0.15-1.2); Total Protein 8.2 g/dL (6.6-8.7)
[2019-10-03 16:51] LABS: Acetaminophen < 5.0 ug/mL (10-30); Alcohol Level < 10 mg/dL (0-10); Salicylate < 0.3 mg/dL (3-10)
--- NOTE | 2019-10-03 17:08 | XR_ITS ---
WS: [id number] RIGHT HAND: 2 VIEW(S) TECHNIQUE: PA and lateral. HISTORY: pain, swelling COMPARISON: None available. No acute fracture or dislocation. No soft tissue or bone abnormality. XR/XR hand RT 2V [id number] IMPRESSION: Normal RIGHT hand.
[2019-10-03 18:27] VITALS: BP 125/76; PULSE 78; RESP 18; O2SAT 97
[2019-10-03 18:51] VITALS: BP 108/68; PULSE 76; RESP 18; TEMP 36.9; O2SAT 99
[2019-10-03 21:44] VITALS: BP 143/76; PULSE 86; RESP 18; TEMP 37.1; O2SAT 99
--- NOTE | 2019-10-04 00:03 | PC.NURSE ---
trazodone 50 mg po given as sleep aide.
[2019-10-04 06:00] VITALS: BP 123/66; PULSE 88; RESP 17; TEMP 36.8; O2SAT 95
[2019-10-04 13:41] VITALS: BP 120/75; PULSE 94; RESP 20; TEMP 36.7; O2SAT 97
--- NOTE | 2019-10-04 16:06 | P.CONIM_ITS ---
Providers/Reason for Consult Consulting Physican/Specialty*: initial psychiatric evaluation Reason for Consult*: psychiatry Attending Physician: Dung Salazar MD Psych Consult HPI History of Present Illness Chief complaint: I got angry. When I came to, the door was torn off and my computer had been slung outside. History of present illness:Zev Live is a 24 year old male who is readmitted to the psychiatric unit 5 days after he was just discharged from a primary diagnoses of cluster a personality disorder and cluster B personality disorder.the patient reported that after discharge, he had continued taking his Lamictal and buspirone. He said they were working great . However he and his girlfriend got into an argument. He does not remember anything after that. He does not recall any are. He did not lose control of bowel or bladder. However he does recall suddenly coming to his senses a few minutes later and the room being in disarray with his computer out in the yard. He decided to come to the emergency room to see this medications needed adjusting. He denied suicidal or homicidal ideation. He presents auditory or visual hallucinations. He denied side effects to his medications. He presents of any types of new rashes. he does claim that his father has rage seizures and is wondering whether this episode was actually a seizure. emergency room physician note:24 yo male presents to ED with suicidal ideation. He said he was having trouble forming words and that depressed him. The patient states it seems as if his brain is having some issues and he doesn't know how to deal with it on his own. Today is worse than it has been for a long time. He is feeling: remorse, sadness, pain, anger at himself. He has tried suicide in the past. Mental health history: his psychiatric evaluation on admission to the same unit 11 days ago: Zev Live is a 24 year old male who presents to the emergency room because he was having some rough times. He reports that 4 week he had really been sleeping and things were not going well. He reports that he was last here in January 2018. He has been living in [place] and moving back and trying to really make the best of his life with his girlfriend. He reports that they were having some challenges in that led to what happened but, part of the issue is that he reports having somewhat explosive behaviors without really having triggers sometimes and was triggers other times. And he feels great guilt and remorse about how he responds to situations above and beyond what those situations with arousals and other people. He endorses having one suicide attempt in his life. He reports that he wants to manage this [id number] anger and irritability and is not currently on any medications and is open to a trial of something. We discussed the risks, benefits and alternatives of Lamictal for his mood dysregulation and BuSpar for his anxiety and he understood and agreed to proceed as is documented in his note. Zev presented to the emergency room anger, interpersonal conflicts and thoughts to kill himself. He was admitted to the neuro psych unit and quickly acclimated to the individual, group and milieu therapies provided. He was started on BuSpar 15 mg by mouth twice a day which was decreased to 10 mg by mouth twice a day as well as Lamictal 25 mg daily. Lamictal will have a titration to 100 mg after discharge to avoid the risk of Scott-Jose syndrome which we discussed the risks, benefits and alternatives related to the medication additions and he understood and agreed to proceed as is documented in this note. He responded well to the medication. During hospitalization he had routine laboratory studies which were within normal limits except for a few outliers. Additionally he had a general medical evaluation which was also within normal limits and revealed no new acute processes. Discharge Summary At the time of discharge he denied any lethality, depression is improving and his anxiety was better controlled. He endorsed a plan to avoid any drugs of abuse and follow-up with outpatient treatment to which he was referred. He achieves a maximum benefit from inpatient hospitalization so he was discharged Mental Status Exam MSE Comments: This is a slender white male with adequate progress, grooming and eye contact. No abnormal movements . Cooperative with exam, in no acute distress. Speech was normal rate and volume. Mood described as pretty good, affect congruent. Thought process organized. Thought content: Patient denied any suicidal or homicidal ideations, there were no delusions reported noted, he denied any auditory or visual hallucinations. Attention and concentration were intact and memory appeared reliable but none were formally tested. He is alert and oriented ?3. Insight and judgment appeared fair. Psychiatric history: He had a few hospitalizations but limited medication trials. Substance abuse history: He endorses that he smokes about a pack of cigarettes a day, does not drink alcohol with any regularity, as marijuana occasionally but not daily, denies cocaine and methamphetamine or any other illicit drug use. He never has been to rehabilitation or had a DUI. Family history: He endorses mental health issues on both sides of his family, he has addiction issues on his dad's side of family, and he denies any suicide attempts or completions in his family. 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 A walk and talk to Ms. Bobo milestones on time. He reports he did have speech therapy and was diagnosed with ADHD but denies any emotional support, learning support or special education classes. Psychosocial history: 's mother father were together when he was born. He has a younger brother that is also a product of that union. He is unaware of any half siblings. He reports his childhood was okay. They were really poor endorses some neglect but denies physical or sexual abuse. He did graduate from high school but denies any additional training. Endorses being heterosexual with his longest relationship being one year. Never been , never had children, never been in and endorses the immunology as his pentecostalism. He reports that as long as employment was 6 years that [employer]. He reports he currently lives in a house with his mom and his girlfriend. Legal history: He denies ever being in halfway. Past medical history:there've been no changes since his discharge from this facility 7 days ago. Mental Status Exam: patient is a disheveled slalom with good hygiene. Eye contact is good. His manner is overly friendly and casual. He is believed to be a reliable informant for the best of his ability. Appearance: hygiene is fair; no gross neurological deficits., gait is unremarkable; AIMS=0 Speech: Speech is of normal rate and rhythm and easily understood. Thought processes: Thought processes are abstract. Judgment is adequate for safety. Associations: intact Psychotic processes: There is no indication of guarding or paranoia. There is no attention to the internal stimuli. Auditory and visual hallucinations are denied. Judgment: Insight is fair. Problem solving skills are adequate for safety. Orientation: The patient is oriented to person, place time and situation. Memory: no deficits noted in immediate, intermediate, or remote spheres. Attention: The patient is alert and interpersonally engaged. Language: Verbalizations are coherent. Fund of knowledge: Fund of knowledge is adequate. Affect/Mood: Affect is consistent with a euthymic mood. he denied suicidal ideation Affective range appropriate. Psychosis: perception unimpaired except through cognitive distortion; reality testing intact. Diagnoses:adjustment disorder with disturbance of mood and conduct Assessment: What the patient is describing is not a seizure. There is are. There is no focal nature to it. The generalized component was not accompanied with any type of prodromal phenomena, postictal confusion, bowel or bladder incontinence and the outcome had clearly some secondary gain. It would be reasonable to increase his Lamictal to 50 mg twice a day. An effort to give him some feeling of mastery and control of these rage attacks, we discussed the utilization of a when necessary medication and he will be given a trial of Zyprexa Zydis 2.5 mg to test its effect and tolerability. Otherwise he has an appointment with outpatient psychiatrist in 3 days. The intention is to discharge him tomorrow. Treatment plan: Due to the psychiatric conditions and treatment listed in the Assessment and Plan - the patient requires continued hospitalization. Will provide a safe and therapeutic environment for patient.. Will continue inpatient treatment to allow for medication adjustment and monitoring. Will continue q15 min safety checks. What the patient is describing is not a seizure. There is are. There is no focal nature to it. The generalized component was not accompanied with any type of prodromal phenomena, postictal confusion, bowel or bladder incontinence and the outcome had clearly some secondary gain. It would be reasonable to increase his Lamictal to 50 mg twice a day. An effort to give him some feeling of mastery and control of these rage attacks, we discussed the utilization of a when necessary medication and he will be given a trial of Zyprexa Zydis 2.5 mg to test its effect and tolerability. Otherwise he has an appointment with outpatient psychiatrist in 3 days. The intention is to discharge him tomorrow. Monitor patient's mood, sleep, appetite, and behavior closely. Encourage patient to participate in individual and group therapeutic sessions on the geronimo. Estimated length of stay 5 days The expected benefits and potential side effects of patient's psychiatric medications were discussed with the patient. The patient understands and consents to treatment.CRITERIA FOR DISCHARGE: stable on medications and no lo nger an im PFSH NPU PFSH: Medical History (Updated 10/03/19 @ 18:24 by Marjorie Lopez [place], [facility] [place] Cluster B personality disorder Social History Smoking and tobacco status: current every day smoker Vitals/I&O/Wt Last Vital Signs Temp 98.0 F 10/04/19 13:41 Pulse 94 10/04/19 13:41 Resp 20 H 10/04/19 13:41 BP 120/75 10/04/19 13:41 Pulse Ox 97 10/04/19 13:41 Weight last 48 hrs Weight 72.575 kg A&P Additional A&P Information Diagnoses:adjustment disorder with disturbance of mood and conduct Assessment: What the patient is describing is not a seizure. There is are. There is no focal nature to it. The generalized component was not accompanied with any type of prodromal phenomena, postictal confusion, bowel or bladder incontinence and the outcome had clearly some secondary gain. It would be reasonable to increase his Lamictal to 50 mg twice a day. An effort to give him some feeling of mastery and control of these rage attacks, we discussed the utilization of a when necessary medication and he will be given a trial of Zyprexa Zydis 2.5 mg to test its effect and tolerability. Otherwise he has an appointment with outpatient psychiatrist in 3 days. The intention is to discharge him tomorrow. Treatment plan: Due to the psychiatric conditions and treatment listed in the Assessment and Plan - the patient requires continued hospitalization. Will provide a safe and therapeutic environment for patient.. Will continue inpatient treatment to allow for medication adjustment and monitoring. Will continue q15 min safety checks. What the patient is describing is not a seizure. There is are. There is no focal nature to it. The generalized component was not accompanied with any type of prodromal phenomena, postictal confusion, bowel or bladder incontinence and the outcome had clearly some secondary gain. It would be reasonable to increase his Lamictal to 50 mg twice a day. An effort to give him some feeling of mastery and control of these rage attacks, we discussed the utilization of a when necessary medication and he will be given a trial of Zyprexa Zydis 2.5 mg to test its effect and tolerability. Otherwise he has an appointment with outpatient psychiatrist in 3 days. The intention is to discharge him tomorrow. Monitor patient's mood, sleep, appetite, and behavior closely. Encourage patient to participate in individual and group therapeutic sessions on the geronimo. Estimated length of stay 5 days The expected benefits and potential side effects of patient's psychiatric medications were discussed with the patient. The patient understands and consents to treatment.CRITERIA FOR DISCHARGE: stable on medications and no longer an imminent risk to self or others Involuntary Hold Information 96 Hour Hold: 96 Hour Involuntary Admission: No Attestations NPU Medical Necessity Statement*: patient will remain in the hospital 1-2 more nights to assess tolerability of his new medication. Coding Level of Care Code Acute Area Field Person for Rosemary Torres
--- NOTE | 2019-10-04 16:21 | P.HP_ITS ---
Providers/Chief Complaint Admitting Physician: Dung Salazar MD Chief Complaint: mhe HPI NPU History of Present Illness Chief complaint: I got angry. When I came to, the door was torn off and my computer had been slung outside. History of present illness:Zev Live is a 24 year old male who is readmi tted to the psychiatric unit 5 days after he was just discharged from a primary diagnoses of cluster a personality disorder and cluster B personality disorder.the patient reported that after discharge, he had continued taking his Lamictal and buspirone. He said they were working great . However he and his girlfriend got into an argument. He does not remember anything after that. He does not recall any are. He did not lose control of bowel or bladder. However he does recall suddenly coming to his senses a few minutes later and the room being in disarray with his computer out in the yard. He decided to come to the emergency room to see this medications needed adjusting. He denied suicidal or homicidal ideation. He presents auditory or visual hallucinations. He denied side effects to his medications. He presents of any types of new rashes. he does claim that his father has rage seizures and is wondering whether this episode was actually a seizure. emergency room physician note:24 yo male presents to ED with suicidal ideation. He said he was having trouble forming words and that depressed him. The patient states it seems as if his brain is having some issues and he doesn't know how to deal with it on his own. Today is worse than it has been for a long time. He is feeling: remorse, sadness, pain, anger at himself. He has tried suicide in the past. Mental health history: his psychiatric evaluation on admission to the same unit 11 days ago: Zev Live is a 24 year old male who presents to the emergency room because he was having some rough times. He reports that 4 week he had really been sleeping and things were not going well. He reports that he was last here in January 2018. He has been living in [place] and moving back and trying to really make the best of his life with his girlfriend. He reports that they were having some challenges in that led to what happened but, part of the issue is that he reports having somewhat explosive behaviors without really having triggers sometimes and was triggers other times. And he feels great guilt and remorse about how he responds to situations above and beyond what those situations with arousals and other people. He endorses having one suicide attempt in his life. He reports that he wants to manage this [id number] anger and irritability and is not currently on any medications and is open to a trial of something. We discussed the risks, benefits and alternatives of Lamictal for his mood dysregulation and BuSpar for his anxiety and he understood and agreed to proceed as is documented in his note. Zev presented to the emergency room anger, interpersonal conflicts and thoughts to kill himself. He was admitted to the neuro psych unit and quickly acclimated to the individual, group and milieu therapies provided. He was started on BuSpar 15 mg by mouth twice a day which was decreased to 10 mg by mouth twice a day as well as Lamictal 25 mg daily. Lamictal will have a titration to 100 mg after discharge to avoid the risk of Scott-Jose syndrome which we discussed the risks, benefits and alternatives related to the medication additions and he understood and agreed to proceed as is documented in this note. He responded well to the medication. During hospitalization he had routine laboratory studies which were within normal limits except for a few outliers. Additionally he had a general medical evaluation which was also within normal limits and revealed no new acute processes. Discharge Summary At the time of discharge he denied any lethality, depression is improving and his anxiety was better controlled. He endorsed a plan to avoid any drugs of abuse and follow-up with outpatient treatment to which he was referred. He achieves a maximum benefit from inpatient hospitalization so he was discharged Mental Status Exam MSE Comments: This is a slender white male with adequate progress, grooming and eye contact. No abnormal movements . Cooperative with exam, in no acute distress. Speech was normal rate and volume. Mood described as pretty good, affect congruent. Thought process organized. Thought content: Patient denied any suicidal or homicidal ideations, there were no delusions reported noted, he denied any auditory or visual hallucinations. Attention and concentration were intact and memory appeared reliable but none were formally tested. He is alert and oriented ?3. Insight and judgment appeared fair. Psychiatric history: He had a few hospitalizations but limited medication trials. Substance abuse history: He endorses that he smokes about a pack of cigarettes a day, does not drink alcohol with any regularity, as marijuana occasionally but not daily, denies cocaine and methamphetamine or any other illicit drug use. He never has been to rehabilitation or had a DUI. Family history: He endorses mental health issues on both sides of his family, he has addiction issues on his dad's side of family, and he denies any suicide attempts or completions in his family. 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 A walk and talk to Ms. Bobo milestones on time. He reports he did have speech therapy and was diagnosed with ADHD but denies any emotional support, learning s upport or special education classes. Psychosocial history: 's mother father were together when he was born. He has a younger brother that is also a product of that union. He is unaware of any half siblings. He reports his childhood was okay. They were really poor endorses some neglect but denies physical or sexual abuse. He did graduate from high school but denies any additional training. Endorses being heterosexual with his longest relationship being one year. Never been , never had children, never been in and endorses the immunology as his anglican. He reports that as long as employment was 6 years that [employer]. He reports he currently lives in a house with his mom and his girlfriend. Legal history: He denies ever being in assisted. Past medical history:there've been no changes since his discharge from this facility 7 days ago. Mental Status Exam: patient is a disheveled slalom with good hygiene. Eye contact is good. His manner is overly friendly and casual. He is believed to be a reliable informant for the best of his ability. Appearance: hygiene is fair; no gross neurological deficits., gait is unremarkable; AIMS=0 Speech: Speech is of normal rate and rhythm and easily understood. Thought processes: Thought processes are abstract. Judgment is adequate for safety. Associations: intact Psychotic processes: There is no indication of guarding or paranoia. There is no attention to the internal stimuli. Auditory and visual hallucinations are denied. Judgment: Insight is fair. Problem solving skills are adequate for safety. Orientation: The patient is oriented to person, place time and situation. Memory: no deficits noted in immediate, intermediate, or remote spheres. Attention: The patient is alert and interpersonally engaged. Language: Verbalizations are coherent. Fund of knowledge: Fund of knowledge is adequate. Affect/Mood: Affect is consistent with a euthymic mood. he denied suicidal ideation Affective range appropriate. Psychosis: perception unimpaired except through cognitive distortion; reality testing intact. Diagnoses:adjustment disorder with disturbance of mood and conduct Assessment: What the patient is describing is not a seizure. There is are. There is no focal nature to it. The generalized component was not accompanied with any type of prodromal phenomena, postictal confusion, bowel or bladder inco ntinence and the outcome had clearly some secondary gain. It would be reasonable to increase his Lamictal to 50 mg twice a day. An effort to give him some feeling of mastery and control of these rage attacks, we discussed the utilization of a when necessary medication and he will be given a trial of Zyprexa Zydis 2.5 mg to test its effect and tolerability. Otherwise he has an appointment with outpatient psychiatrist in 3 days. The intention is to discharge him tomorrow. Treatment plan: Due to the psychiatric conditions and treatment listed in the Assessment and Plan - the patient requires continued hospitalization. Will provide a safe and therapeutic environment for patient.. Will continue inpatient treatment to allow for medication adjustment and monitoring. Will continue q15 min safety checks. What the patient is describing is not a seizure. There is are. There is no focal nature to it. The generalized component was not accompanied with any type of prodromal phenomena, postictal confusion, bowel or bladder incontinence and the outcome had clearly some secondary gain. It would be reasonable to increase his Lamictal to 50 mg twice a day. An effort to give him some feeling of mastery and control of these rage attacks, we discussed the utilization of a when necessary medication and he will be given a trial of Zyprexa Zydis 2.5 mg to test its effect and tolerability. Otherwise he has an appointment with outpatient psychiatrist in 3 days. The intention is to discharge him tomorrow. Monitor patient's mood, sleep, appetite, and behavior closely. Encourage patient to participate in individual and group therapeutic sessions on the geronimo. Estimated length of stay 5 days The expected benefits and potential side effects of patient's psychiatric medications were discussed with the patient. The patient understands and consents to treatment.CRITERIA FOR DISCHARGE: stable on medications and no longer an im e Meds NPU Home Medications Medication Instructions Recorded Confirmed Type aspirin [Aspir-81] 81 mg PO PRN 10/03/19 10/03/19 History diphenhydramine HCl [Simply Sleep] 50 mg PO BEDTIME 10/03/19 10/03/19 History ibuprofen 400 mg PO Q4H PRN 10/03/19 10/03/19 History lamotrigine See Rx Instructions .ROUTE .COMPLEX 10/03/19 10/03/19 History Allergies Allergy/AdvReac Type Severity Reaction Status Date / Time No Known Allergies Allergy Verified 09/23/19 21:02 PFSH NPU PFSH: Medical History (Updated 10/03/19 @ 18:24 by Marjorie Lopez [place] [facility] [place] B personality disorder Social History Smoking and tobacco status: current every day smoker Vitals/I&O/Wt Last Vital Signs Temp 98.0 F 10/04/19 13:41 Pulse 94 10/04/19 13:41 Resp 20 H 10/04/19 13:41 BP 120/75 10/04/19 13:41 Pulse Ox 97 10/04/19 13:41 Weight last 48 hrs Weight 72.575 kg Data NPU : 10/03/19 16:16 10/03/19 16:16 Involuntary Hold Information 96 Hour Hold: 96 Hour Involuntary Admission: No Attestations NPU Medical Necessity Statement*: Patient remained in the hospital another 1-2 nights to verify tolerability of medication. Coding Level of Care Code Acute Denitrator for Rosemary Torres
[2019-10-04] MEDS: lamoTRIgine 25 mg Tablet 50 MG PO (17:53)
[2019-10-04 20:16] VITALS: BP 107/65; PULSE 77; RESP 16; TEMP 36.6; O2SAT 96
[2019-10-04] MEDS: OLANZapine ODT 5 MG TABLET 2.5 MG PO (21:01)
[2019-10-05 06:00] VITALS: BP 110/72; PULSE 70; RESP 15; TEMP 36.7; O2SAT 94
[2019-10-05] MEDS: lamoTRIgine 25 mg Tablet 50 MG PO (08:21)
--- NOTE | 2019-10-05 09:40 | P.DS_ITS ---
Reason for Visit Reason for Visit: Reason For Visit: [facility] Hospital Course Discharge Summary Chief complaint: I got angry. When I came to, the door was torn off and my computer had been slung outside. History of present illness:Zev Live is a 24 year old male who is readmitted to the psychiatric unit 5 days after he was just discharged from a primary diagnoses of cluster a personality disorder and cluster B personality disorder.the patient reported that after discharge, he had continued taking his Lamictal and buspirone. He said they were working great . However he and his girlfriend got into an argument. He does not remember anything after that. He does not recall any are. He did not lose control of bowel or bladder. However he does recall suddenly coming to his senses a few minutes later and the room being in disarray with his computer out in the yard. He decided to come to the emergency room to see this medications needed adjusting. He denied suicidal or homicidal ideation. He presents auditory or visual hallucinations. He denied side effects to his medications. He presents of any types of new rashes. he does claim that his father has rage seizures and is wondering whether this episode was actually a seizure. emergency room physician note:24 yo male presents to ED with suicidal ideation. He said he was having trouble forming words and that depressed him. The patient states it seems as if his brain is having some issues and he doesn't know how to deal with it on his own. Today is worse than it has been for a long time. He is feeling: remorse, sadness, pain, anger at himself. He has tried suicide in the past. Mental Status Exam: patient is disheveled and slavenly with good hygiene. Eye contact is good. His manner is overly friendly and casual. He is believed to be a reliable informant for the best of his ability. Appearance: hygiene is fair; no gross neurological deficits., gait is unremarkable; AIMS=0 Speech: Speech is of normal rate and rhythm and easily understood. Thought processes: Thought processes are abstract. Judgment is adequate for safety. Associations: intact Psychotic processes: There is no indication of guarding or paranoia. There is no attention to the internal stimuli. Auditory and visual hallucinations are denied. Judgment: Insight is fair. Problem solving skills are adequate for safety. Orientation: The patient is oriented to person, place time and situation. Memory: no deficits noted in immediate, intermediate, or remote spheres. Attention: The patient is alert and interpersonally engaged. Language: Verbalizations are coherent. Fund of knowledge: Fund of knowledge is adequate. Affect/Mood: Affect is consistent with a euthymic mood. he denied suicidal ideation Affective range appropriate. Psychosis: perception unimpaired except through cognitive distortion; reality testing intact. Diagnoses: adjustment disorder with disturbance of mood and conduct Assessment: What the patient is describing is not a seizure. There is are. There is no focal nature to it. The generalized component was not accompanied with any type of prodromal phenomena, postictal confusion, bowel or bladder incontinence and the outcome had clearly some secondary gain. It would be honorio sonable to increase his Lamictal to 50 mg twice a day. An effort to give him some feeling of mastery and control of these rage attacks, we discussed the utilization of a when necessary medication and he will be given a trial of Zyprexa Zydis 2.5 mg to test its effect and tolerability. Otherwise he has an appointment with outpatient psychiatrist in 3 days. The intention is to discharge him tomorrow. Hospital course: The pt was provided a safe and therapeutic. WE increased his Lamictal to 50 mg twice a day. An effort to give him some feeling of mastery and control of these rage attacks, we discussed the utilization of a when necessary medication and he will be given a trial of Zyprexa Zydis 2.5 mg to test its effect and tolerability. Otherwise he has an appointment with outpatient psychiatrist in 2 days. Involuntary Hold Information 96 Hour Hold: 96 Hour Involuntary Admission: No Discharge Data Data Completed and Pending: Completed Studies During Hospitalization Category Date Time Status XR hand RT 2V 731 20 Stat Exams 10/03/19 17:08 Completed Vitals: Last Vital Signs Temp 98.1 F 10/05/19 06:00 Pulse 70 10/05/19 06:00 Resp 15 10/05/19 06:00 BP 110/72 10/05/19 06:00 Pulse Ox 94 10/05/19 06:00 Discharge Plan Discharge Patient Disposition: Home, Self-Care Condition: Stable Prescriptions: New lamotrigine 25 mg Tablet 50 mg PO BID Qty: 120 RF: 1 Continued Aspir-81 81 mg Tablet,Delayed Release (Dr/Ec) 81 mg PO PRN RF: 0 ibuprofen 200 mg Tablet 400 mg PO Q4H PRN (Reason: Pain) RF: 0 Simply Sleep 25 mg Tablet 50 mg PO BEDTIME RF: 0 buspirone 10 mg Tablet 10 mg PO BID 30 Days Qty: 60 RF: 1 lamotrigine [Lamictal] 100 mg tablet 100 mg PO DAILY Qty: 30 RF: 1 Discontinued lamotrigine 25 mg tablet See Rx Instructions .ROUTE .COMPLEX RF: 0 Discharge Orders: Discharge Order (Routine); Ordered 10/05/19 Ordered By: Dung Salazar Referrals: Wero Lane MD [Physician] - 10/07/19 12:15 pm (NPU follow up appointment) Discharge Attestations NPU Time Spent in Discharge Care*: less than 30 min Coding Level of Care Code Acute Puffer Tender for Rosemary Torres
[2019-10-05 09:50] VITALS: BP 110/72; PULSE 70; RESP 15; TEMP 36.7; O2SAT 94
== END 2019-10-05 11:05 | disposition home or self-care (01) | DRG 882 ==
LOC: ER 15:47 → NP 18:19
PROVIDERS: Admitting Provider Psychiatry & Neurology Psychiatry; Emergency Provider Family Medicine; Visit Provider Psychiatry & Neurology Psychiatry
DX: F43.24 Adjustment disorder with disturbance of conduct (principal); R45.851 Suicidal ideations; Z79.82 Long term (current) use of aspirin; Z91.5 Personal history of self-harm; F17.210 Nicotine dependence, cigarettes, uncomplicated; M79.641 Pain in right hand
CPT/HCPCS: 12345; 36415; 73120; 80053; 80307; 81003; 84443; 85025; 99284; A9270

== ENCOUNTER 2019-10-24 11:07 | Emergency (ER) | payer SELFPAY ==
--- NOTE | 2019-10-24 11:23 | XR_ITS ---
WS: [id number] XR chest 1V portable [id number] REASON FOR EXAM: cough FINDINGS: The heart and mediastinal interfaces normal. The lung clark are well aerated. No pneumonia , pleural effusion, pulmonary edema, mass effect, are pneumothorax. The hilum is and apices normal. No osseous abnormalities. XR/XR chest 1V portable [id number] IMPRESSION: Negative chest for active pathology.
[2019-10-24 11:30] VITALS: BP 117/77; RESP 16; TEMP 37.1; O2SAT 96; BMI 20.3
--- NOTE | 2019-10-24 12:52 | W.ED.GENADLT ---
HPI - General Adult General: Chief complaint: General Medical Stated complaint: FLU LIKE ISSUES Time Seen by Provider: 10/24/19 12:52 Source: patient Mode of arrival: ambulatory Limitations: no limitations History of Present Illness: HPI narrative: Patient reports 2-week history of cough. Patient states that last night he started getting the chills and had episodes of emesis followed by diarrhea this morning. Patient is a smoker. Patient appears mildly unwell. Patient appears in no pain. Associated symptoms: Reports nausea and vomiting Review of Systems General: Reports: 10 or more systems reviewed and unremarkable except in HPI and below Const: Reports: chills Resp: Reports: non-productive cough GI: Reports: nausea, vomiting and diarrhea PFS ED PFSH: Medical History (Updated 10/24/19 @ 13:59 by JOVANA Byrnes) Cluster B personality disorder Social History Smoking and tobacco status: current every day smoker Physical Exam Const: COMMON NORMALS: no apparent distress and oriented x3 GENERAL APPEARANCE: cooperative HENMT: COMMON NORMALS: normocephalic, external ears normal, EAC's normal, TM's normal bilaterally and external nose normal HEAD & SCALP: normal to inspection and normocephalic FACE & SINUS: normal facial exam NOSE: external nose normal GENERAL EAR: hearing not grossly impaired EXTERNAL EAR: Yes external ears normal EXTERNAL AUDITORY CANAL: EAC's normal TYMPANIC MEMBRANE: TM's normal bilaterally MOUTH: oral and palatal mucosa normal THROAT: posterior oropharynx normal Eye: COMMON NORMALS: PERRL and EOMs intact bilaterally PUPIL: Yes PERRL Neck/C-Spine: COMMON NORMALS: full ROM and no lymphadenopathy Lymph: LYMPHATIC: no lymphedema noted Chest: COMMONS NORMALS: inspection of chest normal and palpation of chest normal Resp: COMMON NORMALS: normal respiratory effort and clear to auscultation bilaterally AUSCULTATION: clear to auscultation bilaterally and diminished lung sounds Cardio: COMMON NORMALS: regular rate and regular rhythm RATE: regular rate RHYTHM: regular rhythm GI: COMMON NORMALS: normal to inspection, nondistended, normoactive bowel sounds and non-tender : COMMON NORMALS: Yes no CVA tenderness BLADDER/KIDNEY EXAM: Yes no CVA tenderness Back/Pelvis: COMMON NORMALS: no CVA tenderness and thoracic and lumbar spine normal to inspection Extremity: COMMON NORMALS: normal to inspection GENERAL: No edema Neuro: COMMON NORMALS: oriented x3, moves all extremities and no focal motor deficits Psych: COMMON NORMALS: mental status grossly normal and cooperative Skin: COMMON NORMALS: no rashes or lesions noted GENERAL SKIN EXAM: no rashes or lesions noted Course Vital Signs: Vital signs: Vital Signs Temperature 98.7 F 10/24/19 11:30 Respiratory Rate 16 10/24/19 11:30 Blood Pressure 117/77 10/24/19 11:30 Pulse Oximetry 96 10/24/19 11:30 MDM - General Adult MDM Narrative: Medical decision making narrative: Patient comes in today for complaints of persistent cough for the last 2 weeks. Patient then reports last night started getting chills had episodes of vomiting and diarrhea. Patient appears well. Patient exam notes abdomen soft nontender. Vital signs are normal. Lungs are decreased in the bases. Skin is warm and dry. Vital signs are normal. Differential diagnosis includes pneumonia, influenza, bronchitis, exacerbation of asthma. Flu test was negative. Chest x-ray was normal. Reviewed exam with patient with recommendations for treatment with 10 mg of dexamethasone to help with cough and asthma. Patient was also prescribed a inhaler and some Zofran to help with his symptoms. Patient reports understanding of care plan and need for follow-up. Lab Data: Labs: Lab Results 10/24/19 Range/Units 13:13 Influenza Type A A g Negative (Negative) POC Influenza B Ag Negative (Negative) Discharge Plan Discharge Patient Disposition: Home, Self-Care Clinical Impression: Gastroenteritis Asthma Qualifiers: Asthma severity: unspecified severity Asthma persistence: intermittent Asthma complication type: uncomplicated Qualified Code(s): J45.20 - Mild intermittent asthma, uncomplicated Condition: Stable Prescriptions: New ondansetron HCl 4 mg tablet 4 mg PO Q8H PRN (Reason: nausea and vomiting) Qty: 7 RF: 0 albuterol sulfate 90 mcg/actuation HFA aerosol inhaler 2 inh INHALATION Q4H PRN (Reason: shortness of breath or wheezing) Qty: 8.5 RF: 1 No Action Aspir-81 81 mg Tablet,Delayed Release (Dr/Ec) 81 mg PO PRN RF: 0 ibuprofen 200 mg Tablet 400 mg PO Q4H PRN (Reason: Pain) RF: 0 Simply Sleep 25 mg Tablet 50 mg PO BEDTIME RF: 0 lamotrigine 25 mg Tablet 50 mg PO BID Qty: 120 RF: 1 olanzapine 5 mg Tablet,Disintegrating 5 mg PO Q4H PRN (Reason: Agitation/Psychosis) Qty: 10 RF: 1 buspirone 10 mg Tablet 10 mg PO BID 30 Days Qty: 60 RF: 1 lamotrigine [Lamictal] 100 mg tablet 100 mg PO DAILY Qty: 30 RF: 1 Discharge Orders: Discharge Order (Routine); Ordered 10/24/19 Ordered By: Vaughn Garcia Discharge Diet: Advance as tolerated Discharge Activity: Increase activity as tolerated Patient Instructions: Gastroenteritis (ED) Activity Restrictions/Additional Instructions: Drink plenty of fluids Light diet Activity as tolerated Stop smoking Follow-up with primary care Stand Alone Forms: Work/School Release Coding Level of Care Code ED It Business Systems Analyst for Rosemary Fwd Exam Comprehensive
[2019-10-24 13:54] LABS: Influenza A by IFA Negative (Negative); Influenza B by IFA Negative (Negative)
[2019-10-24] MEDS: dexamethasone 10 mg/mL INJ IM (14:11)
[2019-10-24 14:20] VITALS: BP 127/88; PULSE 80; RESP 18
--- NOTE | 2019-10-24 14:49 | W.ED.GENADLT ---
HPI - General Adult General: Chief complaint: General Medical Stated complaint: FLU LIKE ISSUES Time Seen by Provider: 10/24/19 12:52 Source: patient Mode of arrival: ambulatory Limitations: no limitations History of Present Illness: HPI narrative: Patient comes in today with complaints of [facility] ED PFSH: Medical History (Updated 10/24/19 @ 13:59 by JOVANA Byrnes) Cluster B personality disorder Social History Smoking and tobacco status: current every day smoker Course Vital Signs: Vital signs: Vital Signs Temperature 98.7 F 10/24/19 11:30 Pulse Rate 80 10/24/19 14:20 Respiratory Rate 18 10/24/19 14:20 Blood Pressure 127/88 10/24/19 14:20 Pulse Oximetry 96 10/24/19 11:30 MDM - General Adult Lab Data: Labs: Lab Results 10/24/19 Range/Units 13:13 Influenza Type A A g Negative (Negative) POC Influenza B Ag Negative (Negative) Discharge Plan Discharge Patient Disposition: Home, Self-Care Clinical Impression: Gastroenteritis Asthma Qualifiers: Asthma severity: unspecified severity Asthma persistence: intermittent Asthma complication type: uncomplicated Qualified Code(s): J45.20 - Mild intermittent asthma, uncomplicated Condition: Stable Prescriptions: New ondansetron HCl 4 mg tablet 4 mg PO Q8H PRN (Reason: nausea and vomiting) Qty: 7 RF: 0 albuterol sulfate 90 mcg/actuation HFA aerosol inhaler 2 inh INHALATION Q4H PRN (Reason: shortness of breath or wheezing) Qty: 8.5 RF: 1 No Action Aspir-81 81 mg Tablet,Delayed Release (Dr/Ec) 81 mg PO PRN RF: 0 ibuprofen 200 mg Tablet 400 mg PO Q4H PRN (Reason: Pain) RF: 0 Simply Sleep 25 mg Tablet 50 mg PO BEDTIME RF: 0 lamotrigine 25 mg Tablet 50 mg PO BID Qty: 120 RF: 1 olanzapine 5 mg Tablet,Disintegrating 5 mg PO Q4H PRN (Reason: Agitation/Psychosis) Qty: 10 RF: 1 buspirone 10 mg Tablet 10 mg PO BID 30 Days Qty: 60 RF: 1 lamotrigine [Lamictal] 100 mg tablet 100 mg PO DAILY Qty: 30 RF: 1 Discharge Orders: Discharge Order (Routine); Ordered 10/24/19 Ordered By: Vaughn Garcia Discharge Diet: Advance as tolerated Discharge Activity: Increase activity as tolerated Patient Instructions: Gastroenteritis (ED) Activity Restrictions/Additional Instructions: Drink plenty of fluids Light diet Activity as tolerated Stop smoking Follow-up with primary care Stand Alone Forms: Work/School Release Print Language: Tristanian Coding Level of Care Code ED Manager Retention for Rosemary Torres
[2019-10-24 14:56] VITALS: BP 127/88; PULSE 80; RESP 18; O2SAT 98
== END 2019-10-24 14:15 | disposition home or self-care (01) ==
PROVIDERS: Emergency Medicine; Emergency Provider Nurse Practitioner Family
DX: K52.9 Noninfective gastroenteritis and colitis, unspecified (principal); J45.909 Unspecified asthma, uncomplicated; F17.200 Nicotine dependence, unspecified, uncomplicated
CPT/HCPCS: 12345; 71045; 87804; 96372; 99281; 99283; J1100

== ENCOUNTER 2019-11-03 00:26 | Inpatient (IN) | payer SELFPAY ==
[2019-11-03 00:29] VITALS: BP 125/88; PULSE 90; RESP 16; O2SAT 98
--- NOTE | 2019-11-03 00:29 | ED_ITS ---
Entered by Anne Lin, acting as scribe for HPI - Psych General: Chief Complaint: Psychiatric Symptoms Stated Complaint: SI Time Seen by Provider: 11/03/19 00:26 Source: patient Mode of arrival: EMS Limitations: no limitations History of Present Illness: HPI Narrative: 24 yo m came to the er by [facility] for SI thoughts. Onset was last night. Pt states that he has not been able to get into [facility] to start seeing them and does not have an apt for 3 months. Pt said that he has not changed any medication at this time. Pt said that he wants to kill himself but does not have a plan at this time. Ems stated that when they got there to the scene pt was very aggitated, Pt was then on the truck given 4 of ativan. MD complaint: suicidal ideation Duration: intermittent History of same: Yes Relieving factors: medication Exacerbating factors: none Associated psychiatric symptoms: none Associated symptoms: Reports suicidal ideation Treatments prior to arrival: other (guven 4 of ativan) Details of plan: Does not have a plan at this time. Review of Systems Const: Denies: fever or chills Eyes: Denies: change in vision or blurry vision ENMT: Denies: throat pain Card: Denies: chest pain Resp: Denies: shortness of breath or productive cough GI: Denies: abdominal pain : Denies: flank pain or difficulty urinating Musc: Denies: neck pain Skin/Breast: Denies: rash Neuro: Denies: headache Psych: Reports: suicidal ideation Endo: Denies: excessive urination Jasmeet/Lymph: Denies: easy bruising [facility] PFSH: Medical History (Updated 11/03/19 @ 01:54 by Sahil Orta DO) Cluster B personality disorder Social History Smoking and tobacco status: current every day smoker Physical Exam Const: COMMON NORMALS: no apparent distress GENERAL APPEARANCE: cooperative and comfortable ORIENTATION/CONSCIOUSNESS: Yes awake, Yes oriented to person, Yes oriented to place and Yes oriented to time HENMT: COMMON NORMALS: normocephalic, head/scalp atraumatic, hearing grossly normal bilaterally, external ears normal, EAC's normal, TM's normal bilaterally, nasal mucous membranes and turbinates normal, moist oral mucous membranes and oropharynx normal HEAD & SCALP: normocephalic and atraumatic NOSE: nasal mucous membranes and turbinates normal EXTERNAL EAR: Yes external ears normal EXTERNAL AUDITORY CANAL: EAC's normal TYMPANIC MEMBRANE: TM's normal bilaterally Eye: COMMON NORMALS: PERRL, EOMs intact bilaterally, conjunctivae normal and no scleral icterus CONJUNCTIVA: Yes conjunctivae normal PUPIL: Yes PERRL Neck/C-Spine: COMMON NORMALS: full ROM, no lymphadenopathy, supple and no JVD Lymph: LYMPHATIC: no lymphadenopathy noted and no lymphedema noted Resp: COMMON NORMALS: normal respiratory effort, no retractions, no use of accessory muscles and clear to auscultation bilaterally AUSCULTATION: clear to auscultation bilaterally Cardio: COMMON NORMALS: no JVD, regular rate, regular rhythm and no murmurs RATE: regular rate RHYTHM: regular rhythm GI: COMMON NORMALS: soft to palpation and no hepatosplenomegaly AUSCULTATION: Yes normoactive bowel sounds PALPATION: Yes soft, No tender, No guarding and Yes no hepatosplenomegaly Extremity: COMMON NORMALS: normal to inspection, normal capillary refill, no clubbing, cyanosis or edema, no calf tenderness and no pedal edema Neuro: SENSORIUM/ORIENTATION: Yes oriented to person, Yes oriented to place and Yes oriented to time Skin: COMMON NORMALS: no rashes or lesions noted GENERAL SKIN EXAM: no rashes or lesions noted MDM - Psych Lab Data: Labs: Lab Results 11/03/19 11/03/19 11/03/19 Range/Units 00:38 00:38 00:54 WBC 9.8 (4.0-10.0) 10^3/ uL RBC 4.71 (4.1-5.3) 10^6/u L Hgb 13.5 (11.7-16.6) g/dL Hct 42.4 (42.0-52.0) % MCV 90.0 (80-94) fL MCH 28.7 (28.0-34.0) pg MCHC 31.8 (30.0-36.0) g/dL RDW 12.0 L (12.1-15.1) % Plt Count 212 (130-400) 10^3/c mm MPV 11.3 H (7.4-10.4) fL Neut % (Auto) 65.3 % Lymph % (Auto) 21.8 % [place] % (Auto) 9.4 % Eos % (Auto) 2.6 % Baso % (Auto) 0.4 % Neut # (Auto) 6.4 (1.8-7.7) 10^3/u L Lymph # (Auto) 2.1 (0.8-4.8) 10^3/u L [place] # (Auto) 0.9 (0.2-0.9) 10^3/u L Eos # (Auto) 0.3 (0.0-0.8) 10^3/u L Baso # (Auto) 0.0 (0.0-0.1) 10^3/u L Nucleated RBC % (a uto) 0 % Nucleated RBCs # 0.0 /100WBC Sodium (136-145) mmol/L Potassium (3.5-5.1) mmol/L Chloride (98-107) mmol/L Carbon Dioxide (22-29) mmol/L Anion Gap (5-19) BUN (6-20) mg/dL Creatinine (0.7-1.2) mg/dL GFR Calculation (90-130) mL/min Glucose (65-115) mg/dL Calculated Osmolal ity (285-295) mOsm/k g Calcium (8.5-10.5) mg/dL Total Bilirubin (0.15-1.2) mg/dL AST (0-40) U/L ALT (0-41) U/L Alkaline Phosphata se (40-130) IU/L Total Protein (6.6-8.7) g/dL Albumin (3.5-5.2) g/dL Globulin (1.3-4.6) g/dL TSH (0.27-4.20) uIU/ mL Urine Color Yellow (Yellow) Urine Appearance Cloudy (CLEAR) Urine pH 7 (5-7) Ur Specific Gravit y 1.015 (1.005-1.030) Urine Protein Neg (Negative) Urine Glucose (UA) Norm (Normal) Urine Ketones Negative (Negative) Urine Blood Neg (Negative) Urine Nitrate Negative (Negative) Urine Bilirubin Neg (NEGATIVE) Urine Urobilinogen Norm (Negative) mg/dL Ur Leukocyte Ashly ase Negative (Negative) Urine RBC None (0-2) /hpf Urine WBC None (0-5) /hpf Ur Squamous Epith Cells None (0-5) Ur Transition Epit h Cell None /hpf Ur Renal Epithelia l Cell N /hpf Calcium Oxalate Cr ystal None /hpf Uric Acid Crystals N /hpf Triple Phos Brittany ls None /hpf Other Crystals N /hpf Amorphous Sediment 4+ Urine Bacteria Trace (NONE) Urine Mucus N Salicylates (3-10) mg/dL Urine Opiates Scre en Negative (Negative) ng/mL Acetaminophen (10-30) ug/mL Ur Barbiturates Sc reen Negative (Negative) ng/mL Ur Phencyclidine S crn Negative (Negative) ng/mL Ur Amphetamines Sc reen Negative (Negative) ng/mL U Benzodiazepines Scrn Positive H (Negative) ng/mL Urine Cocaine Scre en Negative (Negative) ng/mL U Marijuana (THC) Screen Negative (Negative) ng/mL Ethyl Alcohol (0-10) mg/dL 11/03/19 Range/Units 00:54 WBC (4.0-10.0) 10^3/ uL RBC (4.1-5.3) 10^6/u L Hgb (11.7-16.6) g/dL Hct (42.0-52.0) % MCV (80-94) fL MCH (28.0-34.0) pg MCHC (30.0-36.0) g/dL RDW (12.1-15.1) % Plt Count (130-400) 10^3/c mm MPV (7.4-10.4) fL Neut % (Auto) % Lymph % (Auto) % [place] % (Auto) % Eos % (Auto) % Baso % (Auto) % Neut # (Auto) (1.8-7.7) 10^3/u L Lymph # (Auto) (0.8-4.8) 10^3/u L [place] # (Auto) (0.2-0.9) 10^3/u L Eos # (Auto) (0.0-0.8) 10^3/u L Baso # (Auto) (0.0-0.1) 10^3/u L Nucleated RBC % (a uto) % Nucleated RBCs # /100WBC Sodium 139 (136-145) mmol/L Potassium 3.9 (3.5-5.1) mmol/L Chloride 103 (98-107) mmol/L Carbon Dioxide 28 (22-29) mmol/L Anion Gap 11.9 (5-19) BUN 9 (6-20) mg/dL Creatinine 1.0 (0.7-1.2) mg/dL GFR Calculation 91.0 (90-130) mL/min Glucose 86 (65-115) mg/dL Calculated Osmolal ity 283 L (285-295) mOsm/k g Calcium 9.5 (8.5-10.5) mg/dL Total Bilirubin 0.2 (0.15-1.2) mg/dL AST 16 (0-40) U/L ALT 16 (0-41) U/L Alkaline Phosphata se 31 L (40-130) IU/L Total Protein 6.9 (6.6-8.7) g/dL Albumin 4.2 (3.5-5.2) g/dL Globulin 2.7 (1.3-4.6) g/dL TSH 1.38 (0.27-4.20) uIU/ mL Urine Color (Yellow) Urine Appearance (CLEAR) Urine pH (5-7) Ur Specific Gravit y (1.005-1.030) Urine Protein (Negative) Urine Glucose (UA) (Normal) Urine Ketones (Negative) Urine Blood (Negative) Urine Nitrate (Negative) Urine Bilirubin (NEGATIVE) Urine Urobilinogen (Negative) mg/dL Ur Leukocyte Ashly ase (Negative) Urine RBC (0-2) /hpf Urine WBC (0-5) /hpf Ur Squamous Epith Cells (0-5) Ur Transition Epit h Cell /hpf Ur Renal Epithelia l Cell /hpf Calcium Oxalate Cr ystal /hpf Uric Acid Crystals /hpf Triple Phos Brittany ls /hpf Other Crystals /hpf Amorphous Sediment Urine Bacteria (NONE) Urine Mucus Salicylates < 0.3 L (3-10) mg/dL Urine Opiates Scre en (Negative) ng/mL Acetaminophen < 5.0 L (10-30) ug/mL Ur Barbiturates Sc reen (Negative) ng/mL Ur Phencyclidine S crn (Negative) ng/mL Ur Amphetamines Sc reen (Negative) ng/mL U Benzodiazepines Scrn (Negative) ng/mL Urine Cocaine Scre en (Negative) ng/mL U Marijuana (THC) Screen (Negative) ng/mL Ethyl Alcohol < 10 (0-10) mg/dL Discharge Plan Discharge Patient Disposition: Admitted As Inpatient Admit Provider: Hardeep Bradshaw Clinical Impression: Suicidal ideation Condition: Stable Coding Level of Care Code ED Community Marketing Coordinator for Rosemary Torres The documentation recorded by the Riley brito Stephanie Lyn, accurately reflects the service I personally performed and the decisions made by Marivel guerrero Curtis L, Nov 03, 2019 00:26
[2019-11-03 00:58] LABS: Basophils % 0.4 %; Eosinophils # 0.3 10^3/uL (0.0-0.8); Eosinophils % 2.6 %; Hematocrit 42.4 % (42.0-52.0); Hemoglobin 13.5 g/dL (11.7-16.6); Lymphocytes # 2.1 10^3/uL (0.8-4.8); Lymphocytes % 21.8 %; Mean Corpuscular HGB Conc 31.8 g/dL (30.0-36.0); Mean Corpuscular Hemoglobin 28.7 pg (28.0-34.0); Mean Platelet Volume 11.3 fL (7.4-10.4); Monocytes # 0.9 10^3/uL (0.2-0.9); Monocytes % 9.4 %; Neutrophils # 6.4 10^3/uL (1.8-7.7); Neutrophils % 65.3 %; Nucleated Red Blood Cells % 0 %; Platelet Count 212 10^3/cmm (130-400); Red Blood Count 4.71 10^6/uL (4.1-5.3); White Blood Count 9.8 10^3/uL (4.0-10.0)
[2019-11-03 01:06] LABS: Add Urine Microscopic? YES; Bilirubin Urine Neg (NEGATIVE); Blood Urine Neg (Negative); Glucose Urine UA Norm (Normal); Ketones Urine Negative (Negative); Leukocyte Esterase Urine Negative (Negative); Nitrate Urine Negative (Negative); Protein Urine Neg (Negative); Specific Gravity, Urine 1.015 (1.005-1.030); Urine Appearance Cloudy (CLEAR); Urine Color Yellow (Yellow); Urobilinogen Urine Norm (Negative); pH Urine 7 (5-7)
[2019-11-03 01:14] LABS: Amphetamines Screen Urine Negative (Negative); Barbiturates Screen Urine Negative (Negative); Benzodiazepines Screen Urine Positive (Negative); Cocaine Screen Urine Negative (Negative); Opiate Screen Urine Negative (Negative); PCP Screen Urine Negative (Negative); THC Screen Urine Negative (Negative)
--- NOTE | 2019-11-03 01:29 | PC.NURSE ---
Other pain location reported is in his ribs
[2019-11-03 01:30] LABS: Add Urine Culture? No; Amorphous Sediment Urine 4+; Bacteria Urine TRACE; Mucus Urine N; Other Crystals Urine N /hpf; Renal Epithelial Cells Urine N /hpf; Uric Acid Crystals Urine N /hpf
[2019-11-03 01:50] LABS: Alanine Aminotransferase 16 U/L (0-41); Albumin Level 4.2 g/dL (3.5-5.2); Alkaline Phosphatase 31 IU/L (40-130); Anion Gap 11.9 (5-19); Aspartate Amino Transferase 16 U/L (0-40); Blood Urea Nitrogen 9 mg/dL (6-20); Calcium 9.5 mg/dL (8.5-10.5); Carbon Dioxide 28 mmol/L (22-29); Chloride 103 mmol/L (98-107); Globulin 2.7 g/dL (1.3-4.6); Glucose 86 mg/dL (65-115); Osmolality Calculated 283 mOsm/kg (285-295); Potassium 3.9 mmol/L (3.5-5.1); Sodium 139 mmol/L (136-145); Thyroid Stimulating Hormone 1.38 uIU/mL (0.27-4.20); Total Bilirubin 0.2 mg/dL (0.15-1.2); Total Protein 6.9 g/dL (6.6-8.7)
[2019-11-03 01:51] LABS: Acetaminophen < 5.0 ug/mL (10-30); Alcohol Level < 10 mg/dL (0-10); Salicylate < 0.3 mg/dL (3-10)
[2019-11-03 02:45] VITALS: BP 121/78; PULSE 84; RESP 95; TEMP 35.8; O2SAT 95
[2019-11-03 06:00] VITALS: BP 102/64; PULSE 75; RESP 17; TEMP 36.7; O2SAT 96
[2019-11-03] MEDS: nicotine 21 mg Patch 1 PATCH TRANSDERMA (08:04)
[2019-11-03 13:25] VITALS: BP 122/65; PULSE 102; RESP 18; TEMP 37; O2SAT 97
--- NOTE | 2019-11-03 14:08 | PM.NHP ---
Providers/Chief Complaint Admitting Physician: Hardeep Bradshaw MD Chief Complaint: SI HPI NPU History of Present Illness Chief complaint: I'm doing OK and then I just hate myself and want to . History of present illness:Zev Live is a 24 year old male who is admitted for the third time this year with similar complaints. He presents a history of neurotic self loathing that culminates in feelings of self destruction such as hitting himself with his fist. At times, he has become so angry that he loses his memory. He denies the presence of severe clinical depression: he has good hedonic capacity, appetite and sleep are good, he is otherwise not irritable. However, he becomes overwhelmed by strong emotion. HE feels hopeless and overwhelmed to the extent that he cannot get up the motivation to work toward a better life. HE denies signs/sympotms of harrison. He denies the presence of alcohol or substance use. emergency room physician note: 24 yo m came to the er by [facility] for SI thoughts. Onset was last night. Pt states that he has not been able to get into [facility] to start seeing them and does not have an apt for 3 months. Pt said that he has not changed any medication at this time. Pt said that he wants to kill himself but does not have a plan at this time. Ems stated that when they got there to the scene pt was very aggitated, Pt was then on the truck given 4 of ativan. Mental health history: From his psychaitric unit admission on 10/04/2019: Chief complaint: I got angry. When I came to, the door was torn off and my computer had been slung outside. History of present illness:Zev Live is a 24 year old male who is readmitted to the psychiatric unit 5 days after he was just discharged from a primary diagnoses of cluster a personality disorder and cluster B personality disorder.the patient reported that after discharge, he had continued taking his Lamictal and buspirone. He said they were working great . However he and his girlfriend got into an argument. He does not remember anything after that. He does not recall any are. He did not lose control of bowel or bladder. However he does recall suddenly coming to his senses a few minutes later and the room being in disarray with his computer out in the yard. He decided to come to the emergency room to see this medications needed adjusting. He denied suicidal or homicidal ideation. He presents auditory or visual hallucinations. He denied side effects to his medications. He presents of any types of new rashes. he does claim that his father has rage seizures and is wondering whether this episode was actually a seizure. From his psychiatric evaluation on admission to the same unit 0n 09/24/2019: Zev Live is a 24 year old male who presents to the emergency room because he was having some rough times. He reports that 4 week he had really been sleeping and things were not going well. He reports that he was last here in January 2018. He has been living in [place] and moving back and trying to really make the best of his life with his girlfriend. He reports that they were having some challenges in that led to what happened but, part of the issue is that he reports having somewhat explosive behaviors without really having triggers sometimes and was triggers other times. And he feels great guilt and remorse about how he responds to situations above and beyond what those situations with arousals and other people. He endorses having one suicide attempt in his life. He reports that he wants to manage this [id number] anger and irritability and is not currently on any medications and is open to a trial of something. We discussed the risks, benefits and alternatives of Lamictal for his mood dysregulation and BuSpar for his anxiety and he understood and agreed to proceed as is documented in his note. Zev presented to the emergency room anger, interpersonal conflicts and thoughts to kill himself. He was admitted to the neuro psych unit and quickly acclimated to the individual, group and milieu therapies provided. He was started on BuSpar 15 mg by mouth twice a day which was decreased to 10 mg by mouth twice a day as well as Lamictal 25 mg daily. Lamictal will have a titration to 100 mg after discharge to avoid the risk of Scott-Jose syndrome which we discussed the risks, benefits and alternatives related to the medication additions and he understood and agreed to proceed as is documented in this note. He responded well to the medication. During hospitalization he had routine laboratory studies which were within normal limits except for a few outliers. Additionally he had a general medical evaluation which was also within normal limits and revealed no new acute processes. Psychiatric history: He had a few hospitalizations but limited medication trials. Substance abuse history: He endorses that he smokes about a pack of cigarettes a day, does not drink alcohol with any regularity, as marijuana occasionally but not daily, denies cocaine and methamphetamine or any other illicit drug use. He never has been to rehabilitation or had a DUI. Family history: He endorses mental health issues on both sides of his family, he has addiction issues on his dad's side of family, and he denies any suicide attempts or completions in his family. 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 A walk and talk to Ms. Bobo milestones on time. He reports he did have speech therapy and was diagnosed with ADHD but denies any emotional support, learning support or special education classes. Psychosocial history: pt's mother father were together when he was born. He has a younger brother that is also a product of that union. He is unaware of any half siblings. He reports his childhood was okay. They were really poor endorses some neglect but denies physical or sexual abuse. He did graduate from high school but denies any additional training. Endorses being heterosexual with his longest relationship being one year. 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 He reports that as long as employment was 6 years that [employer]. He reports he currently lives in a house with his mom and his girlfriend. Legal history:He denies ever being in retirement. Mental Status Exam: the patient is an alert interpersonally engaged male. Though he has poor self-observation, he otherwise is a reliabel informant as judging by the consistency of his story and its consistency with information in his chart. He has a generous sense of entitlement Appearance: hygiene is fair; no gross neurological deficits., gait is unremarkable; AIMS=0 Speech: Speech is of normal rate and rhythm and easily understood. Thought processes: Thought processes are abstract. Judgment is adequate for safety. Associations: intact Psychotic processes: There is no indication of guarding or paranoia. There is no attention to the internal stimuli. Auditory and visual hallucinations are denied. Judgment: Insight is fair. Problem solving skills are adequate for safety. Orientation: The patient is oriented to person, place time and situation. Memory: no deficits noted in immediate, intermediate, or remote spheres. Attention: The patient is alert and interpersonally engaged. Language: Verbalizations are coherent. Fund of knowledge: Fund of knowledge is adequate. Affect/Mood: Affect is consistent with a depressed mood. He denies the presence of suicidal ideation Affective range appropriate. Psychosis: perception unimpaired except through significant cognitive distortion; reality testing intact. Diagnoses: MAjor depression - single, moderate Borderline Personality Disorder Assessment: prognosis is poor without entry into a psychotherapeutic relationship Treatment plan: Due to the psychiatric conditions and treatment listed in the Assessment and Plan - the patient requires continued hospitalization. Will provide a safe and therapeutic environment for patient.. Will continue inpatient treatment to allow for medication adjustment and monitoring. Will continue q15 min safety checks. Will continue his Lamictal 100 mg daily. Will start Celexa 20 mg daily for depression. Continue buspirone 10 mg bid. Trial of lorazepam 1 mg daily prn anxiety. Monitor patient's mood, sleep, appetite, and behavior closely. Encourage patient to participate in individual and group therapeutic sessions on the geronimo. Estimated length of stay 5 days The expected benefits and potential side effects of patient's psychiatric medications were discussed with the patient. The patient understands and consents to treatment.CRITERIA FOR DISCHARGE: stable on medications and no longer an im Meds NPU Allergies Allergy/AdvReac Type Severity Reaction Status Date / Time No Known Allergies Allergy Verified 09/23/19 21:02 PFS NPU PFSH: Medical History (Updated 11/03/19 @ 01:54 by Sahil Orta DO) Cluster B personality disorder Social History Smoking and tobacco status: current every day smoker Vitals/I&O/Wt Last Vital Signs Temp 98.6 F 11/03/19 13:25 Pulse 102 H 11/03/19 13:25 Resp 18 11/03/19 13:25 BP 122/65 11/03/19 13:25 Pulse Ox 97 11/03/19 13:25 Data NPU : 11/03/19 00:54 11/03/19 00:54 Involuntary Hold Information 96 Hour Hold: 96 Hour Involuntary Admission: No Attestations NPU Medical Necessity Statement*: pt to remain in hospital for the next 4-5 nights for medication tolerability and efficacy. Coding Level of Care Code Acute Pressing Machine Operator for Rosemary Torres
[2019-11-03] MEDS: ibuprofen 200 mg Tablet 400 MG PO (14:20)
[2019-11-03] MEDS: LORazepam 1 mg Tablet PO (14:21)
[2019-11-03] MEDS: citalopram 20 mg Tablet PO (14:22)
[2019-11-03] MEDS: BuSPIRONE 10 mg Tablet PO (17:00)
--- NOTE | 2019-11-03 20:45 | PC.NURSE ---
pt has no hs meds scheduled at this time.
[2019-11-03 21:44] VITALS: BP 132/80; PULSE 92; RESP 22; TEMP 36.8; O2SAT 97
[2019-11-03] MEDS: trazodone 50 mg Tablet PO (23:55)
--- NOTE | 2019-11-03 23:59 | PC.NURSE ---
pt given trazodone at this time for sleep.
[2019-11-04 06:00] VITALS: BP 111/71; PULSE 73; RESP 18; TEMP 36.4; O2SAT 95
[2019-11-04] MEDS: lamoTRIgine 100 mg Tablet PO (08:21)
[2019-11-04] MEDS: BuSPIRONE 10 mg Tablet PO ×2 (08:21→17:58)
[2019-11-04] MEDS: citalopram 20 mg Tablet PO (08:21)
[2019-11-04] MEDS: nicotine 21 mg Patch 1 PATCH TRANSDERMA (09:04)
--- NOTE | 2019-11-04 13:54 | PM.NPN ---
Vitals/I&O/Wt Last Vital Signs Temp 97.5 F L 11/04/19 06:00 Pulse 73 11/04/19 06:00 Resp 18 11/04/19 06:00 BP 111/71 11/04/19 06:00 Pulse Ox 95 11/04/19 06:00 Data NPU : 11/03/19 00:54 11/03/19 00:54 A&P Additional A&P Information Subjective: patient reported that the celexa has no intolerable side effects. The one dose of lorazepam 1 mg produced no effect at all. He was given Zyprexa Zydis on last discharge as a prn and it took an hour to kick in and was not really useful. Mental Status Exam: the patient is an alert interpersonally engaged male. Though he has poor self-observation, he otherwise is a reliable informant as judging by the consistency of his story and its consistency with information in his chart. He has a generous sense of entitlement Appearance: hygiene is fair; no gross neurological deficits., gait is unremarkable; AIMS=0 Speech: Speech is of normal rate and rhythm and easily understood. Thought processes: Thought processes are abstract. Judgment is adequate for safety. Associations: intact Psychotic processes: There is no indication of guarding or paranoia. There is no attention to the internal stimuli. Auditory and visual hallucinations are denied. Judgment: Insight is fair. Problem solving skills are adequate for safety. Orientation: The patient is oriented to person, place time and situation. Memory: no deficits noted in immediate, intermediate, or remote spheres. Attention: The patient is alert and interpersonally engaged. Language: Verbalizations are coherent. Fund of knowledge: Fund of knowledge is adequate. Affect/Mood: Affect is consistent with a euthymic mood. He denies the presence of suicidal ideation Affective range appropriate. Psychosis: perception unimpaired except through significant cognitive distortion; reality testing intact. Diagnoses: MAjor depression - single, moderate Borderline Personality Disorder Assessment: prognosis is poor without entry into a psychotherapeutic relationship Treatment plan: Due to the psychiatric conditions and treatment listed in the Assessment and Plan - the patient requires continued hospitalization. Will provide a safe and therapeutic environment for patient.. Will continue inpatient treatment to allow for medication adjustment and monitoring. Will continue q15 min safety checks. HD#2:Will continue his Lamictal 100 mg daily. Will start Celexa 20 mg daily for depression. Continue buspirone 10 mg bid. Trial of lorazepam 1 mg daily prn anxiety. HD#3: continue his Lamictal 100 mg daily and buspirone 10 mg bid. day #2 of Celexa 20 mg daily for depression. Trial of diazepam 2 mg to assess toelrance. Monitor patient's mood, sleep, appetite, and behavior closely. Encourage patient to participate in individual and group therapeutic sessions on the geronimo. Estimated length of stay 5 days The expected benefits and potential side effects of patient's psychiatric medications were discussed with the patient. The patient understands and consents to treatment.CRITERIA FOR DISCHARGE: stable on medications and no longer an im Involuntary Hold Information 96 Hour Hold: 96 Hour Involuntary Admission: No Attestations NPU Medical Necessity Statement*: pt will remain in hospital another 1-2 nighta for medication efficacy and tolerability Coding Level of Care Code Acute Housekeeping Room Inspector for Rosemary Torres
[2019-11-04] MEDS: diazePAM 2 mg Tablet PO (13:57)
[2019-11-04 14:00] VITALS: BP 145/78; PULSE 92; RESP 18; TEMP 36.4; O2SAT 96
[2019-11-04] MEDS: ibuprofen 200 mg Tablet 400 MG PO ×2 (15:39→21:04)
[2019-11-04] MEDS: trazodone 50 mg Tablet PO (21:04)
[2019-11-04 21:24] VITALS: BP 118/75; PULSE 87; RESP 24; TEMP 37; O2SAT 96
[2019-11-04 21:25] VITALS: BP 118/75; PULSE 87; RESP 24; TEMP 37; O2SAT 96
[2019-11-05 06:00] VITALS: BP 113/68; PULSE 72; RESP 18; TEMP 36.6; O2SAT 96
[2019-11-05] MEDS: BuSPIRONE 10 mg Tablet PO (08:07)
[2019-11-05] MEDS: citalopram 20 mg Tablet PO (08:07)
[2019-11-05] MEDS: lamoTRIgine 100 mg Tablet PO (08:07)
[2019-11-05] MEDS: nicotine 21 mg Patch 1 PATCH TRANSDERMA (08:58)
--- NOTE | 2019-11-05 10:47 | P.DS_ITS ---
Reason for Visit Reason for Visit: Reason For Visit: SI Hospital Course Discharge Summary Chief complaint: I'm doing OK and then I just hate myself and want to . History of present illness:Zev Live is a 24 year old male who is admitted for the third time this year with similar complaints. He presents a history of neurotic self loathing that culminates in feelings of self destruction such as hitting himself with his fist. At times, he has become so angry that he loses his memory. He denies the presence of severe clinical depression: he has good hedonic capacity, appetite and sleep are good, he is otherwise not irritable. However, he becomes overwhelmed by strong emotion. HE feels hopeless and overwhelmed to the extent that he cannot get up the motivation to work toward a better life. HE denies signs/sympotms of harrison. He denies the presence of alcohol or substance use. emergency room physician note: 24 yo m came to the er by [facility] for SI thoughts. Onset was last night. Pt states that he has not been able to get into [facility] to start seeing them and does not have an apt for 3 months. Pt said that he has not changed any medication at this time. Pt said that he wants to kill himself but does not have a plan at this time. Ems stated that when they got there to the scene pt was very aggitated, Pt was then on the truck given 4 of ativan. Diagnoses: MAjor depression - single, moderate Borderline Personality Disorder Assessment: prognosis is poor without entry into a psychotherapeutic relationship Treatment plan: Due to the psychiatric conditions and treatment listed in the Assessment and Plan - the patient requires continued hospitalization. Will provide a safe and therapeutic environment for patient.. Will continue inpatient treatment to allow for medication adjustment and monitoring. Will continue q15 min safety checks. Will continue his Lamictal 100 mg daily. Will start Celexa 20 mg daily for depression. Continue buspirone 10 mg bid. Trial of lorazepam 1 mg daily prn anxiety. HD#2:Will continue his Lamictal 100 mg daily. Will start Celexa 20 mg daily for depression. Continue buspirone 10 mg bid. Trial of lorazepam 1 mg daily prn anxiety. HD#3: continue his Lamictal 100 mg daily and buspirone 10 mg bid. day #2 of Celexa 20 mg daily for depression. Trial of diazepam 2 mg to assess Involuntary Hold Information 96 Hour Hold: 96 Hour Involuntary Admission: No Mental Status Exam MSE Comments: Discharge Mental Status Exam: Appearance: hygiene is good; no gross neurological deficits., gait is unremarkable; AIMS=0 Speech: Speech is of normal rate and rhythm and easily understood. Thought processes: Thought processes are abstract. Judgment is adequate for safety. Associations: intact Psychotic processes: There is no indication of guarding or paranoia. There is no attention to the internal stimuli. Auditory and visual hallucinations are denied. Judgment: Insight is fair. Problem solving skills are adequate for safety. Orientation: The patient is oriented to person, place time and situation. Memory: no deficits noted in immediate, intermediate, or remote spheres. Attention: The patient is alert and interpersonally engaged. Language: Verbalizations are coherent. Fund of knowledge: Fund of knowledge is adequate. Affect/Mood: Affect is consistent with a euthymic mood. denied suicidal ideation Affective range is appropriate. Psychosis: perception unimpaired except through cognitive distortion; reality testing intact. Discharge Data Vitals: Last Vital Signs Temp 97.8 F 11/05/19 06:00 Pulse 72 11/05/19 06:00 Resp 18 11/05/19 06:00 BP 113/68 11/05/19 06:00 Pulse Ox 96 11/05/19 06:00 Discharge Plan Discharge Patient Disposition: Home, Self-Care Condition: Stable Prescriptions: New citalopram 20 mg Tablet 20 mg PO DAILY Qty: 30 RF: 4 diazepam 5 mg tablet 5 mg PO DAILY PRN (Reason: intense anxiety) Qty: 7 RF: 4 Continued buspirone 10 mg Tablet 10 mg PO BID 30 Days Qty: 60 RF: 4 Lamictal 100 mg tablet 100 mg PO DAILY Qty: 30 RF: 4 ondansetron HCl 4 mg tablet 4 mg PO Q8H PRN (Reason: nausea and vomiting) Qty: 7 RF: 0 albuterol sulfate 90 mcg/actuation HFA aerosol inhaler 2 inh INHALATION Q4H PRN (Reason: shortness of breath or wheezing) Qty: 8.5 RF: 1 Discontinued olanzapine 5 mg Tablet,Disintegrating 5 mg PO Q4H PRN (Reason: Agitation/Psychosis) Qty: 10 RF: 1 Discharge Orders: Discharge Order (Routine); Ordered 11/05/19 Ordered By: Dung Salazar Referrals: Wero Lane MD [Physician] - 11/19/19 3:00 pm Discharge Attestations NPU Time Spent in Discharge Care*: greater than 30 min Coding Level of Care Code Acute Tire Fabric Inspector for Chg Brian
[2019-11-05 10:48] VITALS: BP 113/68; PULSE 72; RESP 18; TEMP 36.6; O2SAT 96
== END 2019-11-05 14:17 | disposition home or self-care (01) | DRG 885 ==
LOC: ER 01:54 → NP 02:08
PROVIDERS: Admitting Provider Psychiatry & Neurology Psychiatry; Emergency Provider Family Medicine; Visit Provider Psychiatry & Neurology Psychiatry
DX: F33.2 Major depressive disorder, recurrent severe without psychotic features (principal); R45.851 Suicidal ideations; F17.210 Nicotine dependence, cigarettes, uncomplicated
CPT/HCPCS: 12345; 36415; 80053; 80306; 80307; 81001; 84443; 85025; 99284; A9270

== ENCOUNTER 2020-06-24 18:56 | Emergency (ER) | payer SELFPAY ==
[2020-06-24 19:24] VITALS: BP 148/96; PULSE 87; RESP 16; TEMP 36.8; O2SAT 98; BMI 23.7
--- NOTE | 2020-06-24 19:36 | ED_ITS ---
HPI - Chest Pain General: Chief Complaint: Chest Pain Stated Complaint: Cough, congestion, pain in chest and back Time Seen by Provider: 06/24/20 19:34 History of Present Illness: HPI narrative: Patient comes in with cough and congestion for about 6 weeks now. Patient does have asthma. Patient reports 3 days ago had a asthma attack and since then he has had some right-sided chest discomfort. Patient is concerned that he may have pneumonia. Patient appears well. Patient appears no acute distress. Review of Systems General: Reports: 10 or more systems reviewed and unremarkable except in HPI and below Resp: Reports: chest congestion [facility] ED PFS: Medical History (Updated 06/24/20 @ 20:31 by JOVANA Byrnes) Cluster B personality disorder Social History Smoking and tobacco status: current every day smoker Physical Exam Const: COMMON NORMALS: no acute distress and patient oriented x3 GENERAL APPEARANCE: cooperative HENMT: COMMON NORMALS: normocephalic and Normal external nose present HEAD & SCALP: normal to inspection and normocephalic NOSE: Normal external nose present MOUTH: Normal oral and palatal mucosa present Eye: GENERAL EYE: appearance normal, both eyes and all related structures Neck/C-Spine: COMMON NORMALS: full ROM Chest: COMMONS NORMALS: normal inspection of the chest Resp: COMMON NORMALS: normal respiratory effort EFFORT & INSPECTION: Yes able to speak in complete sentences AUSCULTATION: diminished lung sounds Cardio: COMMON NORMALS: regular rate and regular rhythm RATE: regular rate RHYTHM: regular rhythm GI: COMMON NORMALS: non-tender Back/Pelvis: COMMON NORMALS: thoracic and lumbar spine normal to inspection Extremity: COMMON NORMALS: normal to inspection Neuro: COMMON NORMALS: patient oriented x3 and moves all extremities Psych: COMMON NORMALS: mental status grossly normal and cooperative Skin: COMMON NORMALS: no rashes or lesions noted GENERAL SKIN EXAM: no rashes or lesions noted Course Vital Signs: Vital signs: Vital Signs Temperature 98.2 F 06/24/20 19:24 Pulse Rate 84 06/24/20 19:55 Respiratory Rate 18 06/24/20 19:55 Blood Pressure 126/96 06/24/20 19:55 Pulse Oximetry 96 06/24/20 19:55 MDM - Chest Pain MDM Narrative: Medical decision making narrative: Patient comes in today with complaints of right sided chest discomfort. Patient appears well. On exam patient has some decreased breath sounds. Heart rates regular. Some chest wall tenderness is noted on palpation. Differential diagnosis includes but not limited to pneumonia, costochondritis, bronchitis, exacerbation of asthma. Reviewed exam with patient with recommendations for treatment and follow-up. Chest x-ray was normal. EKG was normal. Recommended treatment for bronchitis and exacerbation of asthma. Patient was started on antibiotic and steroid. Was given refill of albuterol inhaler. Patient reported understanding of care plan and need for follow-up or return. EKG Data^: EKG 1: Attestation: I personally reviewed and interpreted this EKG as follows: (193, sinus rhythm, regular at a rate of 83 bpm, no ectopy, no ST elevation.) Discharge Plan Discharge Patient Disposition: Home Clinical Impression: Acute bronchitis Qualifiers: Bronchitis organism: unspecified organism Qualified Code(s): J20.9 - Acute bronchitis, unspecified Asthma Qualifiers: Asthma severity: moderate Asthma persistence: persistent Asthma complication type: uncomplicated Qualified Code(s): J45.40 - Moderate persistent asthma, uncomplicated Condition: Stable Prescriptions: New azithromycin 500 mg tablet 500 mg PO DAILY 2 Days Qty: 2 RF: 0 prednisone 20 mg tablet 40 mg PO DAILY Qty: 6 RF: 0 albuterol sulfate 90 mcg/actuation HFA aerosol inhaler 2 inh INHALATION Q4H PRN (Reason: shortness of breath or wheezing) Qty: 18 RF: 0 No Action citalopram 20 mg Tablet 20 mg PO DAILY Qty: 30 RF: 4 diazepam 5 mg tablet 5 mg PO DAILY PRN (Reason: intense anxiety) Qty: 7 RF: 4 buspirone 10 mg Tablet 10 mg PO BID 30 Days Qty: 60 RF: 4 Lamictal 100 mg tablet 100 mg PO DAILY Qty: 30 RF: 4 ondansetron HCl 4 mg tablet 4 mg PO Q8H PRN (Reason: nausea and vomiting) Qty: 7 RF: 0 albuterol sulfate 90 mcg/actuation HFA aerosol inhaler 2 inh INHALATION Q4H PRN (Reason: shortness of breath or wheezing) Qty: 8.5 RF: 1 Discharge Orders: Discharge Order (Routine); Ordered 06/24/20 Ordered By: Vaughn Garcia Discharge Diet: Usual diet Discharge Activity: Increase activity as tolerated Patient Instructions: Bronchitis (Acute) - Adult Activity Restrictions/Additional Instructions: Take medications as directed. Drink plenty of fluids. Follow-up with primary care for further treatment. Return to the emergency department for new concerns. Stand Alone Forms: Work/School Release Coding Level of Care Code ED Wire Rope Fabrication Supervisor for Rosemary Fwjacque Exam Comprehensive
--- NOTE | 2020-06-24 19:36 | XRR_ITS ---
PROCEDURE INFORMATION: Exam: XR Chest, 2 Views Exam date and time: 06/24/2020 8:05 PM Age: 25 years old Clinical indication: Patient HX: Cough and back pain x 2 months TECHNIQUE: Imaging protocol: XR of the chest Views: 2 views. COMPARISON: CR XR chest 1V portable [id number] 10/24/2019 11:41 AM FINDINGS: Lungs: Unremarkable. No consolidation. Pleural space: Unremarkable. No pleural effusion. No pneumothorax. Heart/Mediastinum: Unremarkable. No cardiomegaly. Bones/joints: Unremarkable. XR/XR chest 2V* [id number] IMPRESSION: No acute findings.
[2020-06-24 19:55] VITALS: BP 126/96; PULSE 84; RESP 18; O2SAT 96
[2020-06-24] MEDS: predniSONE 20 mg Tablet 40 MG PO (20:53)
[2020-06-24] MEDS: azithromycin 250 mg Tablet 500 MG PO (20:53)
[2020-06-24 20:57] VITALS: BP 121/67; PULSE 84; RESP 18; TEMP 36.7; O2SAT 97
== END 2020-06-24 20:59 | disposition home or self-care (01) ==
PROVIDERS: Emergency Provider Nurse Practitioner Family
DX: J20.9 Acute bronchitis, unspecified (principal); J45.40 Moderate persistent asthma, uncomplicated; F17.210 Nicotine dependence, cigarettes, uncomplicated
CPT/HCPCS: 12345; 71046; 99281; 99283; J7512; Q0144

== ENCOUNTER 2023-06-21 06:30 | Emergency (ER) | payer SELFPAY ==
[2023-06-21 06:39] VITALS: BP 142/97; PULSE 89; RESP 20; TEMP 36.7; O2SAT 97; BMI 23.1
--- NOTE | 2023-06-21 06:43 | XRR_ITS ---
PROCEDURE INFORMATION: Exam: XR Chest Exam date and time: 06/21/2023 6:51 AM Age: 28 years old Clinical indication: Dyspnea; Additional info: Dyspnea/cough TECHNIQUE: Imaging protocol: Radiologic exam of the chest. Views: 1 view. COMPARISON: CR XR chest 2V* [id number] 06/24/2020 8:01 PM FINDINGS: Lungs: Unremarkable. No consolidation. Pleural spaces: Unremarkable. No pleural effusion. No pneumothorax. Heart/Mediastinum: Unremarkable. No cardiomegaly. Bones/joints: Unremarkable. XR/XR chest 1V portable [id number] IMPRESSION: No acute findings.
[2023-06-21 06:54] LABS: Basophils % 0.5 %; Eosinophils # 0.3 10^3/uL (0.0-0.8); Eosinophils % 3.4 %; Hematocrit 46.6 % (37-53); Lymphocytes # 2.7 10^3/uL (0.8-4.8); Lymphocytes % 36.5 %; Mean Corpuscular HGB Conc 34.5 g/dL (30-55); Mean Corpuscular Hemoglobin 29.9 pg (27-33); Mean Corpuscular Volume 86.6 fl (82-101); Mean Platelet Volume 11.4 fL (7.4-10.4); Monocytes # 0.5 10^3/uL (0.2-0.9); Neutrophils # 3.82 10^3/uL (1.8-7.7); Neutrophils % 52.5 %; Nucleated Red Blood Cells % 0 %; Platelet Count 191 10^3/cmm (157-399); Red Blood Count 5.38 10^6/uL (3.85-5.65); Red Cell Distribution Width 11.5 % (12.1-15.1); White Blood Count 7.29 10^3/uL (3.29-11.43)
--- NOTE | 2023-06-21 06:55 | ED_ITS ---
HPI - SOB/Dyspnea General: Chief Complaint: Shortness of Breath/Dyspnea Stated Complaint: sob Time Seen by Provider: 06/21/23 06:36 Source: patient Mode of arrival: ambulatory History of Present Illness: HPI Narrative: 28-year-old male presents emergency room with complaint of shortness of breath. He states he has a history of asthma. He has had a nonproductive cough. He uses albuterol intermittently which does seem to help. No vomiting no diarrhea no hemoptysis. His oxygen saturations are normal at the bedside when he came to the room he recognizes and stated he does not believe that that is accurate because he feels short of breath MD elicited complaint: shortness of breath and cough Pertinent past history: asthma Onset (ago): day(s) Associated symptoms: Reports cough; Deny no associated symptoms, abdominal pain, chest congestion, chest pain, diaphoresis, dizziness, extremity pain, fever(s), hemoptysis, lightheadedness, myalgias, nausea, orthopnea, palpitations, paresthesias, polydipsia, polyuria, rash, sense of impending doom, syncope, vomiting or other Treatment prior to arrival: bronchodilator Review of Systems Const: Denies: fever(s), chills or diaphoresis Card: Denies: chest pain, palpitations, lightheadedness, syncope or orthopnea Resp: Denies: dyspnea, hemoptysis or chest congestion GI: Denies: abdominal pain, nausea or vomiting : Denies: dysuria, urinary frequency or urinary urgency Musc: Denies: neck pain, back pain or extremity pain Skin/Breast: Denies: rash Neuro: Denies: dizziness Endo: Denies: polyuria or polydipsia PFS ED PFSH: Medical History (Updated 06/21/23 @ 07:15 by Sahil Orta DO) Cluster B personality disorder Social History Smoking and tobacco/nicotine status: current every day tobacco/nicotine user Physical Exam Const: GENERAL APPEARANCE: cooperative and comfortable ORIENTATION/CONSC IOUSNESS: Yes awake, Yes oriented to person, Yes oriented to place and Yes oriented to time HENMT: COMMON NORMALS: normocephalic, atraumatic and hearing grossly normal bilaterally HEAD & SCALP: normocephalic and atraumatic Resp: COMMON NORMALS: normal respiratory effort, No retractions, No use of accessory muscles and clear to auscultation bilaterally AUSCULTATION: clear to auscultation bilaterally Cardio: COMMON NORMALS: regular rate, regular rhythm and No murmurs present (Cardio) RATE: regular rate RHYTHM: regular rhythm GI: COMMON NORMALS: Soft to palpation and No hepatosplenomegaly present AUSCULTATION: Yes normoactive bowel sounds PALPATION: Yes Soft to palpation, No Tenderness to palpation present (GI), No Guarding due to palpation present (GI) and Yes No hepatosplenomegaly present Extremity: COMMON NORMALS: normal to inspection, capillary refill normal, no clubbing, cyanosis or edema, no calf tenderness and no pedal edema Neuro: SENSORIUM/ORIENTATION: Yes oriented to person, Yes oriented to place and Yes oriented to time Skin: COMMON NORMALS: no rashes or lesions noted GENERAL SKIN EXAM: no rashes or lesions noted Course Vital Signs: Vital signs: Vital Signs Temperature 98.1 F 06/21/23 06:39 Pulse Rate 81 06/21/23 07:29 Respiratory Rate 16 06/21/23 07:29 Blood Pressure 129/78 06/21/23 07:02 Pulse Oximetry 100 06/21/23 07:29 Oxygen Delivery Me thod Room Air 06/21/23 07:25 MDM - SOB/Dyspnea Medical Decision Making No acute findings on the chest x-ray. Patient has been using Spiriva which evidently his mother had gotten from a friend and enjoyed to him he is using it every 2-4 hours for his cough. He has not noticed any relief with that. Patient be discharged home with steroid taper doxycycline and albuterol RT edu cated patient on the appropriate use of albuterol. Medical Records I reviewed the patient's medical records. Lab Data I reviewed the patient's lab results. 06/21/23 06:47 Labs/Radiology: Radiology Impressions Chest X-Ray 06/21/23 06:43 IMPRESSION: No acute findings. Laboratory Results WBC 7.29 10^3/uL (3.29-11.43) 06/21/23 06:47 RBC 5.38 10^6/uL (3.85-5.65) 06/21/23 06:47 Hgb 16.10 g/dL (11.27-16.99) 06/21/23 06:47 Hct 46.6 % (37-53) 06/21/23 06:47 MCV 86.6 fl (82-101) 06/21/23 06:47 MCH 29.9 pg (27-33) 06/21/23 06:47 MCHC 34.5 g/dL (30-55) 06/21/23 06:47 RDW 11.5 % (12.1-15.1) L 06/21/23 06:47 Plt Count 191 10^3/cmm (157-399) 06/21/23 06:47 MPV 11.4 fL (7.4-10.4) H 06/21/23 06:47 Neut % (Auto) 52.5 % 06/21/23 06:47 Lymph % (Auto) 36.5 % 06/21/23 06:47 [place] % (Auto) 7.0 % 06/21/23 06:47 Eos % (Auto) 3.4 % 06/21/23 06:47 Baso % (Auto) 0.5 % 06/21/23 06:47 Neut # (Auto) 3.82 10^3/uL (1.8-7.7) 06/21/23 06:47 Lymph # (Auto) 2.7 10^3/uL (0.8-4.8) 06/21/23 06:47 [place] # (Auto) 0.5 10^3/uL (0.2-0.9) 06/21/23 06:47 Eos # (Auto) 0.3 10^3/uL (0.0-0.8) 06/21/23 06:47 Baso # (Auto) 0.0 10^3/uL (0.0-0.1) 06/21/23 06:47 Nucleated RBC % (auto) 0 % 06/21/23 06:47 Nucleated RBCs # 0.0 /100WBC 06/21/23 06:47 All radiology interpretation(s) finalized by discharge Discharge Plan Discharge Patient Disposition: Home Clinical Impression: Asthma with exacerbation Condition: Stable Prescriptions: New doxycycline hyclate 100 mg capsule 100 mg PO BID 10 Days Qty: 20 0RF Medrol (Armando) 4 mg tablets,dose pack See Rx Instructions .ROUTE .COMPLEX Qty: 21 0RF Rx Instructions: orally per package directions albuterol sulfate 90 mcg/actuation HFA aerosol inhaler 2 inh INHALATION Q4H PRN (Reason: shortness of breath or wheezing) Qty: 18 0RF Discontinued prednisone 20 mg tablet 40 mg PO DAILY Qty: 6 0RF No Action citalopram 20 mg Tablet 20 mg PO DAILY Qty: 30 4RF diazepam 5 mg tablet 5 mg PO DAILY PRN (Reason: intense anxiety) Qty: 7 4RF buspirone 10 mg Tablet 10 mg PO BID 30 Days Qty: 60 4RF Lamictal 100 mg tablet 100 mg PO DAILY Qty: 30 4RF Rx Instructions: pt hasnt started this medication yet still on titrating ondansetron HCl 4 mg tablet 4 mg PO Q8H PRN (Reason: nausea and vomiting) Qty: 7 0RF albuterol sulfate 90 mcg/actuation HFA aerosol inhaler 2 inh INHALATION Q4H PRN (Reason: shortness of breath or wheezing) Qty: 8.5 1RF albuterol sulfate 90 mcg/actuation HFA aerosol inhaler 2 inh INHALATION Q4H PRN (Reason: shortness of breath or wheezing) Qty: 18 0RF Discharge Orders: Discharge ED (Routine); Ordered 06/21/23 Ordered By: Sahil Orta Discharge Activity: Cpap/Bipap as instructed Patient Instructions: Opioid Safety, Pain Management Activity Restrictions/Additional Instructions: Thank you for choosing [facility] for your healthcare needs today. Please realize this is an emergency room and that we are providing you with a medical screening exam and this may not be complete and all inclusive of all the testing and or work up that you may need to determine your ailment or severity of your illness. It is very important that you follow up as instructed or that you return to the Emergency Department should you have concerns or if your condition changes or worsens in any way. Follow-up with your primary care doctor if symptoms persist. Your chest x-ray was normal your lungs sound clear and your oxygenation status was normal you are given steroids and a breathing treatment in the emergency room. Start the oral steroids tomorrow start the oral doxycycline today use albuterol as needed for cough or shortness of breath or wheezing. Coding Level of Care Code ED Seo Executive for Rosemary Torres
[2023-06-21] MEDS: dexamethasone 10 mg/mL INJ IM (07:01)
[2023-06-21 07:02] VITALS: BP 129/78; PULSE 85; RESP 18; O2SAT 97
[2023-06-21] MEDS: ipratropium-albuterol 3 mL Neb INHALATION (07:18)
[2023-06-21 07:19] VITALS: PULSE 86; RESP 16; O2SAT 96
[2023-06-21 07:25] VITALS: PULSE 88; RESP 16; O2SAT 96
[2023-06-21 07:29] VITALS: PULSE 81; RESP 16; O2SAT 100
== END 2023-06-21 07:39 | disposition home or self-care (01) ==
PROVIDERS: Emergency Provider Family Medicine
DX: J45.901 Unspecified asthma with (acute) exacerbation (principal); Z72.0 Tobacco use
CPT/HCPCS: 71045; 85025; 94640; 96372; 99284; J1100